=== PATIENT | female | born 1955 | race Caucasian/White ===

== ENCOUNTER 2017-06-09 14:44 | Emergency (ER) | payer OTHER, SELFPAY ==
[2017-06-09 14:45] VITALS: BP 128/94; PULSE 103; RESP 16; TEMP 36.9; O2SAT 95; BMI 32.1
[2017-06-09 14:59] VITALS: O2SAT 98
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
--- NOTE | 2017-06-09 15:12 | NURSING ---
PER PHARMACY LIDOCAINE WITH EPI IS ON BACKORDER, DR GOMEZ MADE AWARE.
[2017-06-09] MEDS: Diphth,Pertuss(Acell),Tet Vac 0.5 ML Vial IM (16:00)
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
--- NOTE | 2017-06-09 16:07 | ED.DEP ---
ED Disposition - Plan for ED Patient: Disposition: Home or Assisted Living Chief Complaint: Head Injury Instructions: ED Head Injury Closed, ED Laceration Scalp Stitch Or Stap Referrals: Raheel Benton MD [Primary Care Provider] - 7 Days for suture removal
[2017-06-09 16:25] VITALS: BP 144/95; RESP 18
== END 2017-06-09 16:25 | disposition home or self-care (01) ==
PROVIDERS: Emergency Provider Emergency Medicine; Family Provider Family Medicine; PCP Family Medicine
DX: S06.9X1A Unspecified intracranial injury with loss of consciousness of 30 minutes or less, initial encounter (principal); S01.01XA Laceration without foreign body of scalp, initial encounter; W20.8XXA Other cause of strike by thrown, projected or falling object, initial encounter; Y93.9 Activity, unspecified; Y92.821 Forest as the place of occurrence of the external cause; Y99.9 Unspecified external cause status; I10 Essential (primary) hypertension; Z86.718 Personal history of other venous thrombosis and embolism; Z79.82 Long term (current) use of aspirin; Z79.899 Other long term (current) drug therapy; Z23 Encounter for immunization
CPT/HCPCS: 12002; 70450; 90471; 90715; 99284

== ENCOUNTER → 2017-08-05 07:05 | Outpatient (CLI) | payer OTHER, SELFPAY ==
[2017-08-05 08:46] LABS: Absolute Lymphocyte Count 1.46 X10^3/ul (0.83-4.51); Absolute Neutrophil Count 2.8 X10^3/uL (2.0-7.7); Basophil# 0.02 X10^3/uL; Basophil% 0.4 % (0-1); Eosinophil# 0.16 X10^3/uL; Eosinophils% 3.3 % (0-5); Hematocrit 38.9 % (37-47); Hemoglobin 13.2 g/dl (12.0-15.0); Lymphocyte # 1.46 X10^3/ul (4.0); Lymphocyte % 30.4 % (19-41); Mean Corp Hgb Conc 33.9 g/gl (32-36); Mean Corpuscular Hgb 30.6 pg (27.0-32.0); Mean Platelet Vol. 10.6 fl (6.2-12.0); Monocyte# 0.41 X10^3/uL; Monocyte% 8.5 % (0-10); Neutrophil # 2.76 X10^3/uL (2.7-7.7); Neutrophil % 57.4 % (47-70); Platelet Count 261 K/mm3 (150-450); RBC Distribution Width CV 12.3 % (11.6-14.6); Red Blood Count 4.32 M/mm3 (4.2-5.4); White Blood Count 4.8 K/mm3 (4.4-11.0)
[2017-08-05 08:47] LABS: POSITIVE COUNT NO; POSITIVE DIFFERENTIAL NO; POSITIVE MORPHOLOGY NO
[2017-08-05 09:07] LABS: Anion Gap 7 (5-15); BUN 20 mg/dL (7-18); BUN/Creat Ratio 28.2 RATIO (10-20); Calcium,Total 9.2 mg/dL (8.5-10.1); Chloride 105 mmol/L (98-107); Creatinine, Serum 0.71 mg/dL (0.55-1.02); EST Glomerular Filtration Rate 88 mL/min (>60); Est Glom Filt Rate - Afr Amer 107 mL/min (>60); Glucose 88 mg/dL (74-106); Magnesium 1.8 mg/dL (1.6-2.6); Sodium Level 142 mmol/L (136-145)
== END ==
PROVIDERS: Family Provider Family Medicine; PCP Family Medicine; Visit Provider Internal Medicine Cardiovascular Disease
DX: I10 Essential (primary) hypertension (principal)
CPT/HCPCS: 36415; 80048; 83735; 85025

== ENCOUNTER → 2017-10-15 12:46 | Outpatient (CLI) | payer OTHER, SELFPAY ==
--- NOTE | 2017-10-15 12:47 | RAD_ITS ---
STUDY: X-RAY - LEFT SHOULDER REASON FOR EXAM: Female, 62 years old. Shoulder pain. TECHNIQUE: 3 view(s) of the shoulder. COMPARISON: None. FINDINGS: There is mild arthrosis of the glenohumeral joint. There is mild arthrosis of the acromioclavicular joint. Normal acromion. Normal humeral head and visualized proximal humerus. The soft tissue structures are unremarkable. Normal visualized pulmonary apex. 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 No acute pathology. Electronically Signed: Bharathi Alcantara MD at 13:28 EDT , Service support ,
== END ==
PROVIDERS: Family Provider Family Medicine; PCP Family Medicine; Visit Provider Orthopaedic Surgery
DX: M25.512 Pain in left shoulder (principal)
CPT/HCPCS: 73030

== ENCOUNTER 2017-10-17 14:53 | Outpatient (RCR) | payer OTHER, SELFPAY ==
--- NOTE | 2017-11-28 12:02 | HP.PTEVAL ---
Patient's Visit Information NIKOS NOVOA is a 62 year old F referred to Physical Therapy by Helen Villaseñor DO with a diagnosis of L shoulder RTC tear vs impingment. Date of Evaluation: 10/17/17 Physical Therapist: Shaun Coy - Visit Plan Frequency: 1-2x /Week Duration: 4 Weeks Plan: Start with AAROM and stability exercises, progressing to strengthening as tolreated. Avoid painful movements. - Subjective Subjective: Pt. is here today for her initial evaluation with diagnosis of L RTC tear vs impingment. Pt. reports having increased pain at rest and with raising her arm over her head. She is able to play [employer] without issues. Pt. reports falling a few months ago, but was unsure if this was the cause of her symptoms. Pt. is able to complete most of her job activities, but is having constant pain. Pt. was seeing chiropractor for her back and neck, but was referred to ortho to check out her arm. Pt. is ahving trouble with sleeping on that side as well. She denies N/T at this point in time. Pt. has not trialed any exercises at this point in time. Pt. is hopeful to reduce symptoms in order to have increased quality of life and get back to all recreational activities without issues. - Pain L shoulder Pain Intensity (Out of 10): 2 Pain Intensity Range: 0, 5 - Objective POSTURE: Pt. has normal posture. Pt. has slgiht FH with slight scapular protraction. Pt. has equal shoulder heights. PALPATION: Pt. has increased tenderness along bicipital groove and anterior subacromial space of L shoulder. No UT pain. NEURO: normal sensation, no impairments noted. ROM: R shoulder- full motion no issues. L shoulder: flexion 160deg increase NW at end range andwith eccentric lowering, abd 145deg incraese NW at end range and with painful arm, ext normal, functional ER C2, fucntional IR L2. MMT: R shoulder 4+/5 throughout; L shoulder- flexion 4/5 increase NW, abd 4/5 increase NW, ER 4/5 increase NW, IR 5/5 NE, ext 5/5 NE. - Special Tests L Shoulder Drop Sign - IS Test: Negative L Shoulder Empty Can - SS: Positive L Shoulder Belly Press - SupScap: Negative L Shoulder Neer - Impingement: Positive L Shoulder Cervantes Rai - Impingement: Positive L Shoulder Biceps Load Test - Labrum: Negative L Shoulder Speeds Test - Labrum/Biceps: Positive - Goals Goal 1:: Pt. to be I with HEP. Goal Time Frame: 4-6 Weeks Goal 2:: Pt. to have full L shoulder ROM without increase in symptoms. Goal Time Frame: 4-6 Weeks Goal 3:: Pt. to have increased L shoulder strength by 1/2 grade of all effected musculature. Goal Time Frame: 4-6 Weeks Goal 4:: Pt. to have no pain with sleeping allwoing for increased quality of life. Goal Time Frame: 4-6 Weeks Goal 5:: Pt. to resume all recreational activities without increase in symptoms. Goal Time Frame: 4-6 Weeks - Rehabilitation Potential Physical Therapy Diagnosis: Pt. has signs and symptoms of L shoulder RTC pathology. It appears that she has a small tear of her RTC, most likely supraspinatus. She does have some slight biceps tendonitis as well. PT. would benefit from PT to maintain/improve ROM and progress strengthening as tolerated. Rehabilitation Potential: Good - Anticipated Interventions Patient/Client Instruction: Educate patient on: Condition, Plan of Care, Risk Factors, Benefits of Fitness Program For the Purpose of:: To improve decision making, To facilitate caregiver knowledge, To improve self management, To prevent re-injury, To improve ability to perform tasks related to life management, To improve tolerance to ADL's Therapeutic Exercise to Include: Strength training, Power training, Postural training, Flexibilty training, Passive ROM, Active ROM, Scapular Strength/Stabilization For the Purpose of:: To decrease pain, To decrease swelling/inflammation, To increase ROM, To improve nutrient delivery to tissue, To increase oxygenation perfusion, To improve health of tissue, To decrease soft tissue restriction, To increase flexibility/ROM IF ES: Yes Ultrasound (thermal/non thermal): Yes For the Purpose of:: To decrease pain, To decrease swelling/inflammation, To increase ROM Thank you for the opportunity to evaluate your patient. For Medicare and Medicare HMO plans, please review the plan of care and approve it. It will need to be FAXED BACK to us at [phone] for Medicare purposes. Please let me know if there are questions or concerns regarding this plan of care. Physician Signature: Date:
--- NOTE | 2018-04-15 17:31 | HP.PT.NRP ---
HP - Discharge Summary (1) - Patient Information NIKOS NOVOA was seen in my office for initial evaluation on 10/17/17. The following Plan of Care was established for this patient: Initial Frequency: 1-2x /Week Initial Duration: 4 Weeks - Anticipated Interventions Patient/Client Instruction: Educate patient on: Condition, Plan of Care, Risk Factors, Benefits of Fitness Program For the Purpose of:: To improve decision making, To facilitate caregiver knowledge, To improve self management, To prevent re-injury, To improve ability to perform tasks related to life management, To improve tolerance to ADL's Therapeutic Exercise to Include: Strength training, Power training, Postural training, Flexibilty training, Passive ROM, Active ROM, Scapular Strength/Stabilization For the Purpose of:: To decrease pain, To decrease swelling/inflammation, To increase ROM, To improve nutrient delivery to tissue, To increase oxygenation perfusion, To improve health of tissue, To decrease soft tissue restriction, To increase flexibility/ROM IF ES: Yes Ultrasound (thermal/non thermal): Yes For the Purpose of:: To decrease pain, To decrease swelling/inflammation, To increase ROM This patient was last seen in our office 10/17/17. Pertinent comments regarding their Physical therapy will appear below: Pt. was seen for her L shoulder pain. Pt. was seen for her initial evaluation, but did not return to further follow up appointments. Pt. was given exercises to work on. Pt. has not been seen in several months and will be DC from PT at this point in time. At this point I will be discontinuing this patient from physical therapy. I would be happy to see this patient again in the future if found appropriate by the physician. Thank you! SAGAR DesouzaT
== END 2017-10-17 19:00 | disposition home or self-care (01) ==
LOC: PT 14:53
PROVIDERS: Family Provider Family Medicine; PCP Family Medicine; Visit Provider Orthopaedic Surgery
DX: M75.102 Unspecified rotator cuff tear or rupture of left shoulder, not specified as traumatic (principal); M75.22 Bicipital tendinitis, left shoulder
CPT/HCPCS: 97162

== ENCOUNTER → 2017-11-01 05:52 | Outpatient (CLI) | payer OTHER, SELFPAY ==
--- NOTE | 2017-11-01 05:54 | MRI_ITS ---
STUDY: MRI LEFT SHOULDER REASON FOR EXAM: Left shoulder pain for 4 months status post injury. TECHNIQUE: Standardized fat and water weighted pulse sequences were obtained in all 3 orthogonal planes. COMPARISON: Radiographs 10/15/2017. FINDINGS: There is a small linear low-grade partial-thickness tear of the articular surface of the distal posterior supraspinatus tendon at the greater tuberosity insertion (T2 coronal image 9). Normal infraspinatus tendon. There is subscapularis tendinosis (proton density axial image 10) without discrete tendon tear. Normal teres minor tendon. Normal supraspinatus muscle. Normal infraspinatus muscle. Normal subscapularis muscle. Normal teres minor muscle. There is a small glenohumeral joint effusion with fluid extending into the bicipital tendon sheath. There is very mild cystic change of the greater tuberosity. Normal biceps labral complex. Normal intracapsular long biceps tendon. Normal labrum. Normal capsulo- ligamentous complex. There is acromioclavicular arthrosis without undersurface osteophytes (T2 sagittal image 10). There is a Type I morphology (flat undersurface), with a neutral orientation. There is subacromial-subdeltoid bursal fluid. Normal visualized coracohumeral and coracoacromial ligaments. Normal deltoid muscle. Normal trapezius muscle. MRI/Upper Ext Joint Only(Routine) IMPRESSION: Small low-grade partial-thickness tear of the supraspinatus tendon. Subscapularis tendinosis. Acromioclavicular arthrosis. Subacromial-subdeltoid bursitis. Small glenohumeral joint effusion. Electronically Signed: Naga Chavez MD at 14:09 EDT Tel , Service support ,
== END ==
PROVIDERS: Family Provider Family Medicine; PCP Family Medicine; Visit Provider Orthopaedic Surgery
DX: M75.102 Unspecified rotator cuff tear or rupture of left shoulder, not specified as traumatic (principal)
CPT/HCPCS: 73221

== ENCOUNTER → 2018-03-13 16:31 | Outpatient (CLI) | payer OTHER, SELFPAY ==
[2018-03-13 15:01] VITALS: BMI 32.1
--- NOTE | 2018-03-13 16:32 | BI_ITS ---
MAMMOGRAPHY - BILATERAL SCREENING REASON FOR EXAM: Female, 62 years old. Routine annual screening examination. PERTINENT HISTORY: Aunt with breast cancer. TECHNIQUE: Digital bilateral breast rocío (3D mammographic acquisition) in the CC and MLO projections. 2-D mediolateral oblique (MLO) and craniocaudad (CC) views of both breasts were obtained. CAD: Full Field Digital Mammography with Computer Added Detection was performed. COMPARISON: Comparison is made with prior study dated September 21, 2016 and February 13, 2017. FINDINGS: Breast Composition: The breasts are almost entirely fatty. There are no dominant masses or suspicious calcifications. The previously seen 5 mm well-defined nodule in the inferior medial portion of the left breast is not seen at this time. No other significant abnormalities are identified. BI/SCREENING MAMM (CAD), BILAT IMPRESSION: Stable bilateral screening mammogram. Yearly follow-up mammogram recommended. (A) ASSESSMENT CATEGORY: BIRADS Category 2: Benign. A letter regarding these results will be sent to the patient by the facility within 30 days. Approximately 10% of breast cancers are not detected by mammography. A normal mammogram should not delay biopsy of a clinically suspicious abnormality. [id number] Electronically Signed: Isaias Munoz MD at 8:41 EST Tel [phone], Service support ,
== END ==
PROVIDERS: Family Provider Family Medicine; PCP Family Medicine; Referring Provider Family Medicine; Visit Provider Family Medicine
DX: Z12.31 Encounter for screening mammogram for malignant neoplasm of breast (principal)
CPT/HCPCS: 77063; 77067

== ENCOUNTER 2018-08-31 11:56 | Observation (INO) | payer OTHER, SELFPAY ==
[2018-07-25 13:05] VITALS: BMI 33.0
[2018-08-31] VITALS (11 sets, daily range): BP systolic 133–204; BP diastolic 73–110; PULSE 68–80; RESP 14–16; TEMP 36.6–37; O2SAT 95–98; BMI 32.1; BMI 32.2
--- NOTE | 2018-08-31 12:11 | EKG12_ITS ---
Test Reason : REPEAT Blood Pressure : / mmHG Vent. Rate : 068 BPM Atrial Rate : 068 BPM P-R Int : 162 ms QRS Dur : 092 ms QT Int : 366 ms P-R-T Axes : 050 006 028 degrees QTc Int : 389 ms Normal sinus rhythm Normal ECG Confirmed by VIVIANE LEIGH MD ([id number]), image editor MARY SOUSA ([id number]) on 09/02/2018 8:04:17 AM Referred By: JASON Confirmed By:VIVIANE LEIGH MD
--- NOTE | 2018-08-31 12:11 | RAD_ITS ---
STUDY: X-RAY CHEST REASON FOR EXAM: Female, 62 years old. Chest pain TECHNIQUE: Frontal view of the chest COMPARISON: None. FINDINGS: The lungs are clear. There are no pleural effusions. There is no pneumothorax. The heart is normal in size. The visualized osseous structures are within normal limits. RAD/Chest 1 View (Portable) IMPRESSION: No acute thoracic pathology. Electronically Signed: Elmer Gutierrez, at 12:43 EDT Tel , Service support ,
--- NOTE | 2018-08-31 12:17 | EKG12_ITS ---
Test Reason : CP Blood Pressure : / mmHG Vent. Rate : 069 BPM Atrial Rate : 069 BPM P-R Int : 162 ms QRS Dur : 090 ms QT Int : 364 ms P-R-T Axes : 040 002 035 degrees QTc Int : 390 ms Normal sinus rhythm Nonspecific ST abnormality Abnormal ECG Confirmed by LU BUSTAMANTE, VIVIANE ([id number]), editor at large MARY SOUSA ([id number]) on 09/02/2018 8:04:37 AM Referred By: JASON Confirmed By:VIVIANE LEIGH MD
[2018-08-31 12:24] LABS: Absolute Lymphocyte Count 1.17 X10^3/ul (0.83-4.51); Absolute Neutrophil Count 2.9 X10^3/uL (2.0-7.7); Basophil# 0.02 X10^3/uL; Basophil% 0.4 % (0-1); Eosinophil# 0.08 X10^3/uL; Eosinophils% 1.7 % (0-5); Hemoglobin 13.2 g/dl (12.0-15.0); Lymphocyte # 1.17 X10^3/ul (4.0); Lymphocyte % 25.5 % (19-41); Mean Corp Hgb Conc 33.8 g/gl (32-36); Mean Corpuscular Hgb 30.1 pg (27.0-32.0); Mean Corpuscular Volume 88.8 fL (81-99); Mean Platelet Vol. 10.3 fl (6.2-12.0); Monocyte# 0.47 X10^3/uL; Monocyte% 10.2 % (0-10); Neutrophil # 2.85 X10^3/uL (2.7-7.7); Neutrophil % 62.2 % (47-70); Platelet Count 233 K/mm3 (150-450); RBC Distribution Width CV 12.6 % (11.6-14.6); RBC Distribution Width SD 40.3 fl (35.1-43.9); Red Blood Count 4.39 M/mm3 (4.2-5.4); White Blood Count 4.6 K/mm3 (4.4-11.0)
[2018-08-31 12:28] LABS: POSITIVE COUNT NO; POSITIVE DIFFERENTIAL NO; POSITIVE MORPHOLOGY NO
[2018-08-31] MEDS: Aspirin 81 MG TAB.CHEW 243 MG PO (12:32)
[2018-08-31] MEDS: 0.9% Normal Saline 1,000 ML 150 ML IV (12:32)
[2018-08-31 12:34] LABS: Anion Gap 9 (5-15); BUN 16 mg/dL (7-18); BUN/Creat Ratio 19.8 RATIO (10-20); Calcium,Total 8.8 mg/dL (8.5-10.1); Chloride 107 mmol/L (98-107); Creatinine, Serum 0.81 mg/dL (0.55-1.02); EST Glomerular Filtration Rate 76 mL/min (>60); Est Glom Filt Rate - Afr Amer 92 mL/min (>60); Estimated Creatinine Clearance 53.64 ml/min; Glucose 109 mg/dL (74-106); Potassium 3.9 mmol/L (3.5-5.1); Sodium Level 143 mmol/L (136-145)
--- NOTE | 2018-08-31 12:44 | ED.VISSUMM ---
- ER Visit Summary Date of Service: 08/31/18 Chief Complaint: Chest pain History of Present Illness: The patient is a 62 F with chest pressure started this morning. She has had pain rating up in the left side of her jaw down her left arm. Today she did feel this is a lightheadedness associated with this as well. She denies shortness of breath. She had intermittent episodes of chest tightness for the last several months. She was seen by cardiology 1 month ago. She has never had a stress test. Physical Examination: Vital signs on arrival include a blood pressure of 204/99, otherwise unremarkable. Patient sitting upright in bed no acute distress. She is anxious. Heart is regular rate and rhythm. Lung sounds are clear. Abdomen is soft and nontender. Lower external examination was no calf tenderness or edema. Test Results: Initial EKG reveals sinus rhythm at [address] depression in V6 only. Repeat EKG is sinus with no ST depression noted to V6. CBC and chemistry studies unremarkable. Troponin is negative. Emergency Department Course and Treatment: Patient taken 1 baby aspirin prior to arrival. She is given 3 additional baby aspirin here. Blood pressure this time is 159/96 with a heart rate of 73. Patient be admitted for further cycling of cardiac enzymes. Treatment Plan: [] Disposition: Admit Impression: Chest pain This note was generated with [employer] dictation software. It may contain incorrect words, spelling, and punctuation that were not noted in review of the chart prior to signing ED Disposition - Plan for ED Patient: Referrals: Raheel Benton MD [Primary Care Provider] -
--- NOTE | 2018-08-31 13:12 | PCM.HP.STD ---
Problem List (1) Atypical chest pain Status: Acute (2) Essential (primary) hypertension Status: Chronic History of Present Illness Date of Admission: 08/31/18 Chief Complaint: Chest discomfort The patient is a 62 year old F past medical history segment for essential hypertension, previous history of central vein thrombosis for which patient has remained on baby aspirin presented with chest discomfort. Per patient he has had intermittent discomfort over the past couple of weeks. 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 On the day of her presentation woke up with chest discomfort which she described as tightness and bandlike radiating to her left arm as well as neck. She subsequently presented to the emergency department as a result. Initial set of cardiac enzymes and EKG came back unremarkable. Decision was made to admit patient for subsequent evaluation in the hospital. Past Medical History Past Medical History (Chronic Problems): Chronic Problems (Last Reviewed 02/10/18 @ 08:31 by Andria Arizmendi) Shortness of breath (Chronic) Scoliosis (Chronic) Syncope and collapse (Chronic) Essential (primary) hypertension (Chronic) Red stool (Chronic) Medical History: Medical History (Last Reviewed 02/10/18 @ 08:31 by Andria Arizmendi) Scoliosis (Chronic) M41.9 Syncope and collapse (Chronic) R55 Essential (primary) hypertension (Chronic) I10 History of hysterectomy Z90.710 Hypokalemia E87.6 Hypomagnesemia E83.42 Allergies amlodipine besylate [From [facility]] Allergy (Severe, Verified 07/25/18 13:10) CAUSED RIGHT LEG TO SWELL CAUSED RIGHT LEG TO SWELL Home Medications: Ambulatory Orders Medication Instructions Recorded Ramipril [Altace] 10 mg PO DAILY 09/14/14 aspirin 81 mg tablet,delayed 81 mg PO QDAY 07/25/17 release diphenhydramine 25 mg tablet 25 mg PO QHS PRN 07/25/17 Surgical History: Surgical History (Last Reviewed 08/31/18 @ 13:26 by Estrada Aguilera MD) Hx of partial thyroidectomy E89.0 Smoking Status: Never smoker - *Family History Maternal Family History: Family History (Last Reviewed 02/10/18 @ 08:31 by Andria Arizmendi) Mother Ventricular tachycardia Paternal Family History: Family History (Last Reviewed 02/10/18 @ 08:31 by Andria Arizmendi) Mother Ventricular tachycardia Review of Systems Constitutional: Denies: Anorexia, Chills, Fever, Night Sweats, Weight Change HEENT: Denies: Head Aches, Sinus Congestion, Sinus Drainage Cardiovascular: Reports: Chest Pain, Light Headedness. Denies: Orthopnea, Palpitations, Paroxysmal Noc. Dyspnea Respiratory: Denies: Cough, Shortness of breath at rest, Shortness of breath upon exertion, Sputum production Gastrointestinal: Denies: Abdominal Pain, Hematemesis, Hematochezia, Nausea, Melena, Vomiting Genitourinary: Denies: Dysuria, Frequency, Hematuria, Urgency Musculoskeletal: Denies: Joint Pain, Joint Tenderness Skin: Denies: Rash Neurological: Denies: Focal weakness, Numbness, Tingling Psychiatric: Denies: Homicidal Ideations, Suicidal Ideations Hematologic/ Lymphatic: Denies: Easy Bruising, Easy Bleeding VTE Information - Inpt Only VTE Present on Admission: No VTE Mechan Device Prophylaxis: None VTE Pharm Prophylaxis ordered?: Yes Objective: GENERAL: cooperative HEENT: Atraumatic; EYES; Anicteric, Normal Conjunctiva NECK; supple, normal thyroid, RESPIRATORY: Diminished to auscultation CARDIOVASCULAR: Regular S1 S2, GI: soft, non-tender, normoactive bowel sounds, : No Renal angle tenderness; EXTREMITIES: No edema, no clubbing, MUSCULOSKELETAL: No Joint Tenderness; NEURO: Awake; no lateralizing signs. SKIN: No Rash PSYCH; Normal affect - Physical Exam Vital Signs Temp Pulse Resp BP Pulse Ox 97.8 F 74 15 161/110 H 98 08/31/18 11:58 08/31/18 12:59 08/31/18 12:59 08/31/18 12:59 08/31/18 12:59 Oxygen Flow Rate (L/min) 2 Oxygen Delivery Method Nasal Cannula Weight: 77.2 kg Body Mass Index (BMI) 32.1 Laboratory Tests Past 24 Hrs 08/31/18 08/31/18 12:05 12:05 WBC 4.6 RBC 4.39 Hgb 13.2 Hct 39.0 MCV 88.8 MCH 30.1 MCHC 33.8 RDW 12.6 RDW Differential 40.3 Plt Count 233 MPV 10.3 Immature Gran % (Auto) 0.000 Neut % (Auto) 62.2 Lymph % (Auto) 25.5 Alexander % (Auto) 10.2 H Eos % (Auto) 1.7 Baso % (Auto) 0.4 Absolute Neuts (auto) 2.9 Absolute Lymphs (auto) 1.17 Total Counted Not Reportable Sodium 143 Potassium 3.9 Chloride 107 Carbon Dioxide 27.0 Anion Gap 9 BUN 16 Creatinine 0.81 Estim Creat Clear Calc 53.64 Est GFR (MDRD) Af Amer 92 Est GFR (MDRD) Non-Af 76 BUN/Creatinine Ratio 19.8 Glucose 109 H Calcium 8.8 Troponin I < 0.015 Assessment/Plan All Active Problems (Last Reviewed 02/10/18 @ 08:31 by Andria Arizmendi) Atypical chest pain (Acute) Segmental and somatic dysfunction of pelvic region (Acute) Segmental and somatic dysfunction of cervical region (Acute) Segmental and somatic dysfunction of thoracic region (Acute) Segmental and somatic dysfunction of lumbar region (Acute) Patient is a 62-year-old lady presented with chest pain 1. Chest pain patient has been placed on a monitored bed with plans to rule out IA with serial cardiac enzymes and EKG. Patient to undergo nuclear stress test in a.m. if IA is ruled out 2. Essential hypertension recently diagnosed. Patient blood pressure on admission not well controlled did continue with her home medication Altace 3. History of central venous thrombosis patient has remained on aspirin 4. Scoliosis: Stable 5. DVT prophylaxis ; Lovenox Code Visit OBSV E&M: [id number] Initial observation care L3
--- NOTE | 2018-08-31 14:14 | EKG12_ITS ---
Test Reason : CP ADMISSION Blood Pressure : / mmHG Vent. Rate : 067 BPM Atrial Rate : 067 BPM P-R Int : 160 ms QRS Dur : 088 ms QT Int : 376 ms P-R-T Axes : 056 036 045 degrees QTc Int : 397 ms Normal sinus rhythm Normal ECG Confirmed by SHARON BUSTAMANTE, MAURICE ([id number]), publishing editor GENNARO LINO ([id number]) on 09/03/2018 12:01:54 PM Referred By: YASMIN Confirmed By:MAURICE HERRERA MD
--- NOTE | 2018-08-31 14:40 | ECHOD_ITS ---
Reason For Study: CHEST PAIN Procedure This was a 2D Doppler, Color Flow transthoracic echocardiogram. Exam performed in department. Left Ventricle Normal LV size. Left ventricular systolic function is normal. The estimated ejection fraction is 63 %. Stage 1 diastolic dysfunction. No regional wall motion abnormalities noted. Right Ventricle Normal RV size. Normal systolic function. Atria Normal left atrium. Normal right atrium. Mitral Valve Normal mitral valve. Tricuspid Valve Normal tricuspid valve. Aortic Valve Normal aortic valve. Trisinus/trileaflet aortic valve. Pulmonic Valve Normal pulmonic valve. Great Vessels Mild to moderately dilated aortic root. The pulmonary artery is normal size. Normal inferior vena cava. Pericardium/Pleural No pericardial effusion. Medication Previously negative bubble study. MMode/2D Measurements & Calculations LVIDd: 4.4 cm IVSd: 0.74 cm Ao root diam: 4.3 cm LVIDs: 3.0 cm LVPWd: 0.83 cm RVDd: 2.7 cm FS: 32.1 % LAV(MOD-bp): 39.8 ml LA A4 area: 13.8 cm2 LA dimension(2D): 2.9 cm LAV(MOD-bp) Indexed: 22.6 ml/m2 LAV(MOD-sp2): 39.0 ml LAV(MOD-sp4): 34.4 ml RA A4 area: 9.6 cm2 Time Measurements MV dec time: 0.20 sec Doppler Measurements & Calculations MV E max rico: 85.5 cm/sec Lat Peak E' Rico: 11.0 cm/sec Med Peak E' Rico: 6.8 cm/sec MV A max rico: 63.8 cm/sec E/E' lat: 7.8 E/E' med: 12.5 MV E/A: 1.3 Ao V2 max: 125.4 cm/sec LV V1 max: 103.1 cm/sec TR max rico: 224.5 cm/sec Ao max P.3 mmHg LV V1 max P.3 mmHg TR max P.2 mmHg Interpretation Summary Normal LV size. Left ventricular systolic function is normal. The estimated ejection fraction is 63 %. Stage 1 diastolic dysfunction. Mild to moderately dilated aortic root. Ordering Physician: Estrada Aguilera Referring Physician: ANGELO NICOLE Performed By: Abida Tapia, OUMOU, RVT
[2018-09-01] VITALS (7 sets, daily range): BP systolic 106–149; BP diastolic 73–80; PULSE 59–66; RESP 14–16; TEMP 36.4–36.7; O2SAT 92–97
--- NOTE | 2018-09-01 04:00 | EKG12_ITS ---
Test Reason : AM EKG Blood Pressure : / mmHG Vent. Rate : 058 BPM Atrial Rate : 058 BPM P-R Int : 164 ms QRS Dur : 092 ms QT Int : 396 ms P-R-T Axes : 052 028 047 degrees QTc Int : 388 ms Sinus bradycardia Otherwise normal ECG Confirmed by SHARON BUSTAMANTE, MAURICE ([id number]), editorial director GENNARO LINO ([id number]) on 09/03/2018 11:52:02 AM Referred By: DR MCNEIL Confirmed By:MAURICE HERRERA MD
[2018-09-01 05:13] LABS: Absolute Lymphocyte Count 1.38 X10^3/ul (0.83-4.51); Absolute Neutrophil Count 2.3 X10^3/uL (2.0-7.7); Basophil# 0.01 X10^3/uL; Basophil% 0.2 % (0-1); Eosinophil# 0.14 X10^3/uL; Eosinophils% 3.3 % (0-5); Hematocrit 37.5 % (37-47); Hemoglobin 12.7 g/dl (12.0-15.0); Lymphocyte # 1.38 X10^3/ul (4.0); Lymphocyte % 32.9 % (19-41); Mean Corp Hgb Conc 33.9 g/gl (32-36); Mean Corpuscular Hgb 29.8 pg (27.0-32.0); Mean Platelet Vol. 10.4 fl (6.2-12.0); Monocyte# 0.42 X10^3/uL; Neutrophil # 2.25 X10^3/uL (2.7-7.7); Neutrophil % 53.6 % (47-70); Platelet Count 218 K/mm3 (150-450); RBC Distribution Width CV 12.3 % (11.6-14.6); RBC Distribution Width SD 38.8 fl (35.1-43.9); Red Blood Count 4.26 M/mm3 (4.2-5.4); White Blood Count 4.2 K/mm3 (4.4-11.0)
[2018-09-01 05:19] LABS: International Normalized Ratio 1.1; Prothrombin Time (Protime)PT. 13.7 SECONDS (11.7-14.9)
[2018-09-01 05:20] LABS: Partial Thromboplast Time 29.6 Seconds (24.1-36.2)
[2018-09-01 05:22] LABS: POSITIVE COUNT NO; POSITIVE DIFFERENTIAL NO; POSITIVE MORPHOLOGY NO
[2018-09-01 05:23] LABS: Anion Gap 9 (5-15); BUN 13 mg/dL (7-18); BUN/Creat Ratio 18.9 RATIO (10-20); Calcium,Total 8.4 mg/dL (8.5-10.1); Chloride 108 mmol/L (98-107); Cholesterol 123 mg/dL (200); Creatinine, Serum 0.69 mg/dL (0.55-1.02); EST Glomerular Filtration Rate 92 mL/min (>60); Est Glom Filt Rate - Afr Amer 111 mL/min (>60); Estimated Creatinine Clearance 62.97 ml/min; Glucose 111 mg/dL (74-106); High Density Lipoprotein 47 mg/dL; Potassium 3.5 mmol/L (3.5-5.1); Sodium Level 143 mmol/L (136-145); Triglycerides 55 mg/dL; Very Low Density Lipoprotein 11 mg/dL (5-40)
[2018-09-01] MEDS: Aspirin E.C. 81 MG Tablet PO (05:35)
[2018-09-01] MEDS: Ramipril 10 MG Capsule PO (05:35)
--- NOTE | 2018-09-01 09:37 | STRESSREP ---
Stress Test Report Exercise myocardial perfusion stress test. 62-year-old lady with a history of chest tightness. Stress protocol: Resting EKG demonstrates normal sinus rhythm with a rate of 64 bpm normal intervals are noted resting blood pressures 146/94 mmHg. The patient exercised according to regular Brandon protocol for total duration of 9 minutes completing stage III of the Brandon protocol the maximum heart rate attained was 148 bpm which was 94% of maximum predicted heart rate the maximum workload was 10.1 metabolic equivalents. The resting blood pressures 146/94 with a peak blood pressure of 212/110. At rest there were no ST or T wave changes noted suggest ischemia peak exercise upsloping ST changes were noted with no meet the criteria for ischemia. Patient complained of a neck tightness during the exertion. Myocardial perfusion protocol. 11.3 mCi of technetium 99m sestamibi was injected at rest. The patient exercised for total duration of 9 minutes attaining 10.1 METS. At peak exercise 33.8 mCi of technetium 99m sestamibi was injected stress images were obtained stress and rest images were reconstructed in comparing the short axis vertical and horizontal long axis. Gated images were also obtained. Perfusion SPECT analysis: Review of the stress images demonstrate mildly reduced perfusion in the distal anterior wall with minimal improvement on the resting images. Mild amount of ischemia cannot be completely excluded. Gated SPECT analysis: The gated ejection fraction is noted to be 76%. Conclusion: Exercise myocardial perfusion stress test with suggestive but not diagnostic ischemia noted in the anterior wall. Throat discomfort suggestive of angina. Hypertensive response to exercise. Preserved ejection fraction.
[2018-09-01] MEDS: ALPRAZolam 0.5 MG Tablet PO (09:59)
--- NOTE | 2018-09-01 09:59 | CASEMGMT ---
According to [employer] website, the following are in-network tertiary facilities: [facility], [facility], [facility], [facility], [facility], [facility], [facility], [facility], [facility], and . Ramon CARUSO CM
--- NOTE | 2018-09-01 11:11 | PCM.CONS.C ---
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 Per patient he has had intermittent discomfort over the past couple of weeks. 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 On the day of her presentation woke up with chest discomfort which she described as tightness and bandlike radiating to her left arm as well as neck. She subsequently presented to the emergency department as a result. Initial set of cardiac enzymes and EKG came back unremarkable. Decision was made to admit patient for subsequent evaluation in the hospital. She underwent a stress test this morning and developed throat tightness during the stress test and it was decided for cardiology to see her for further evaluation and management. Past Medical History Allergies/Adverse Reactions: Allergies amlodipine besylate [From [employer]] Allergy (Severe, Verified 07/25/18 13:10) CAUSED RIGHT LEG TO SWELL CAUSED RIGHT LEG TO SWELL Home Medications: Ambulatory Orders Medication Instructions Recorded Ramipril [Altace] 10 mg PO DAILY 09/14/14 aspirin 81 mg tablet,delayed 81 mg PO QDAY 07/25/17 release Past Medical History (Chronic Problems): Chronic Problems (Last Reviewed 02/10/18 @ 08:31 by Andria Arizmendi) Shortness of breath (Chronic) Scoliosis (Chronic) Syncope and collapse (Chronic) Essential (primary) hypertension (Chronic) Red stool (Chronic) - *Family History Maternal Family History: Family History (Last Reviewed 02/10/18 @ 08:31 by Andria Arizmendi) Mother Ventricular tachycardia Paternal Family History: Family History (Last Reviewed 02/10/18 @ 08:31 by Andria Arizmendi) Mother Ventricular tachycardia Smoking Status: Never smoker Tobacco Use: Non-smoker Alcohol: None Drugs: None Review of Systems - Review of Systems General: Denies: Fever, Night Sweats, Fatigue HEENT: Denies: Vision Change Cardiovascular: Reports: Chest Discomfort, Chest Discomfort with Exertion, Chest Pressure. Denies: Shortness of Breath, Orthopnea, PND, Peripheral Edema, Palpitations, Lightheadedness, Dizziness, Near Syncope, Syncope Respiratory: Denies: Cough, Sputum Production, Hemoptysis Gastrointestinal: Denies: Hematemesis, Hematochezia, Melena Genitourinary: Denies: Dysuria, Hematuria Muscoloskeletal: Denies: Myalgias Skin: Denies: Rash Neurological: Denies: Dizziness Psychiatric: Denies: Anxiety Endocrine: Denies: Heat Intolerance Hematologic/ Lymphatic: Denies: Anemia Subjectve: Pleasant lady in no apparent distress Objective: Vital Signs Temp Pulse Resp BP Pulse Ox 97.6 F L 64 14 149/80 H 96 09/01/18 05:15 09/01/18 09:26 09/01/18 05:15 09/01/18 05:15 09/01/18 05:15 Oxygen Flow Rate (L/min) 2 Oxygen Delivery Method Room Air Weight: 170 lb 3.15 oz Body Mass Index (BMI) 32.1 Intake and Output for Last 24 Hours 08/30/18 08/31/18 09/01/18 23:59 23:59 23:59 Intake Total 467 / 467 240 / 240 Balance 467 / 467 240 / 240 General: Awake, Alert, Oriented x 3 HEENT: PERRL, EOMI, Sclera Non Icteric Neck: Supple, Good ROM, No Lymph Node Enlargement Lungs: Clear to auscultation Cardiovascular: Regular Rhythm, Normal S1, Normal S2, No Murmurs, No Rubs, No Gallops Vascular: No Carotid Bruits, Normal Femoral Pulses, Normal Radial Pulses, Normal Dorsalis Pedal Pulse, Normal Posterior Tibial Pulses Abdomen: Bowel Sounds Present, Soft, Non Tender, No HSM, No Organomegaly Extremities: No Cyanosis, No Clubbing, No edema Musculoskeletal: No Erythema Skin: No Rashes Lymphatic: No Lymph Node Enlargement Neurological: No Focal Motor or Sensory Deficit Psych/Mental Status: Appropriate 08/31/18 12:05: WBC 4.6, RBC 4.39, Hgb 13.2, Hct 39.0, MCV 88.8, MCH 30.1, MCHC 33.8, RDW 12.6, RDW Differential 40.3, Plt Count 233, MPV 10.3, Immature Gran % (Auto) 0.000, Neut % (Auto) 62.2, Lymph % (Auto) 25.5, Clay % (Auto) 10.2 H, Eos % (Auto) 1.7, Baso % (Auto) 0.4, Absolute Neuts (auto) 2.9, Total Counted Not Reportable 08/31/18 12:05: Sodium 143, Potassium 3.9, Chloride 107, Carbon Dioxide 27.0, Anion Gap 9, BUN 16, Creatinine 0.81, Est GFR (MDRD) Af Amer 92, Est GFR (MDRD) Non-Af 76, BUN/Creatinine Ratio 19.8, Glucose 109 H, Calcium 8.8, Troponin I < 0.015 08/31/18 15:35: Troponin I < 0.015 08/31/18 18:05: Troponin I < 0.015 09/01/18 04:50: Sodium 143, Potassium 3.5, Chloride 108 H, Carbon Dioxide 26.0, Anion Gap 9, BUN 13, Creatinine 0.69, Est GFR (MDRD) Af Amer 111, Est GFR (MDRD) Non-Af 92, BUN/Creatinine Ratio 18.9, Glucose 111 H, Calcium 8.4 L, Magnesium 2.0, Triglycerides 55, Cholesterol 123, LDL Cholesterol 65, VLDL Cholesterol 11, HDL Cholesterol 47 09/01/18 04:50: WBC 4.2 L, RBC 4.26, Hgb 12.7, Hct 37.5, MCV 88.0, MCH 29.8, MCHC 33.9, RDW 12.3, RDW Differential 38.8, Plt Count 218, MPV 10.4, Immature Gran % (Auto) 0.000, Neut % (Auto) 53.6, Lymph % (Auto) 32.9, Clay % (Auto) 10.0, Eos % (Auto) 3.3, Baso % (Auto) 0.2, Absolute Neuts (auto) 2.3, Total Counted Not Reportable 09/01/18 04:50: PT 13.7, INR 1.1, APTT 29.6 Rhythm: EKG: Normal sinus rhythm with no acute changes ECHO: Normal ejection fraction of 65% with mild to moderately dilated aortic root Stress Test: Mildly abnormal stress test with symptomatology and possible mild anterolateral ischemia Assessment/Plan 1. Chest pain Patient presents with chest pain which was somewhat atypical and cardiac enzymes were abnormal underwent stress testing. The stress testing reproduce some of her symptomatology. Based on the above it was felt that she should undergo a cardiac catheterization. The risk benefits and alternatives have been explained to her she understands and agrees to proceed. Addendum: Cardiac catheterization performed today demonstrated essentially normal coronary arteries. Left ventricular ejection fraction was noted to be normal And there was a mildly dilated aortic root. Plan: Aggressive medical therapy. Risk factor modification Discontinue recent diet drink.
--- NOTE | 2018-09-01 11:15 | CON.PCM_ITS ---
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 Per patient he has had intermittent discomfort over the past couple of weeks. 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 On the day of her presentation woke up with chest discomfort which she described as tightness and bandlike radiating to her left arm as well as neck. She subsequently presented to the emergency department as a result. Initial set of cardiac enzymes and EKG came back unremarkable. Decision was made to admit patient for subsequent evaluation in the hospital. She underwent a stress test this morning and developed throat tightness during the stress test and it was decided for cardiology to see her for further evaluation and manage ment. Past Medical History Allergies/Adverse Reactions: Allergies amlodipine besylate [From [employer]] Allergy (Severe, Verified 07/25/18 13:10) CAUSED RIGHT LEG TO SWELL CAUSED RIGHT LEG TO SWELL Home Medications: Ambulatory Orders Medication Instructions Recorded Ramipril [Altace] 10 mg PO DAILY 09/14/14 aspirin 81 mg tablet,delayed 81 mg PO QDAY 07/25/17 release Past Medical History (Chronic Problems): Chronic Problems (Last Reviewed 02/10/18 @ 08:31 by Andria Arizmendi) Shortness of breath (Chronic) Scoliosis (Chronic) Syncope and collapse (Chronic) Essential (primary) hypertension (Chronic) Red stool (Chronic) - *Family History Maternal Family History: Family History (Last Reviewed 02/10/18 @ 08:31 by Andria Arizmendi) Mother Ventricular tachycardia Paternal Family History: Family History (Last Reviewed 02/10/18 @ 08:31 by Andria Arizmendi) Mother Ventricular tachycardia Smoking Status: Never smoker Tobacco Use: Non-smoker Alcohol: None Drugs: None Review of Systems - Review of Systems General: Denies: Fever, Night Sweats, Fatigue HEENT: Denies: Vision Change Cardiovascular: Reports: Chest Discomfort, Chest Discomfort with Exertion, Chest Pressure. Denies: Shortness of Breath, Orthopnea, PND, Peripheral Edema, Palpitations, Lightheadedness, Dizziness, Near Syncope, Syncope Respiratory: Denies: Cough, Sputum Production, Hemoptysis Gastrointestinal: Denies: Hematemesis, Hematochezia, Melena Genitourinary: Denies: Dysuria, Hematuria Muscoloskeletal: Denies: Myalgias Skin: Denies: Rash Neurological: Denies: Dizziness Psychiatric: Denies: Anxiety Endocrine: Denies: Heat Intolerance Hematologic/ Lymphatic: Denies: Anemia Subjectve: Pleasant lady in no apparent distress Objective: Vital Signs Temp Pulse Resp BP Pulse Ox 97.6 F L 64 14 149/80 H 96 09/01/18 05:15 09/01/18 09:26 09/01/18 05:15 09/01/18 05:15 09/01/18 05:15 Oxygen Flow Rate (L/min) 2 Oxygen Delivery Method Room Air Weight: 170 lb 3.15 oz Body Mass Index (BMI) 32.1 Intake and Output for Last 24 Hours 08/30/18 08/31/18 09/01/18 23:59 23:59 23:59 Intake Total 467 / 467 240 / 240 Balance 467 / 467 240 / 240 General: Awake, Alert, Oriented x 3 HEENT: PERRL, EOMI, Sclera Non Icteric Neck: Supple, Good ROM, No Lymph Node Enlargement Lungs: Clear to auscultation Cardiovascular: Regular Rhythm, Normal S1, Normal S2, No Murmurs, No Rubs, No Gallops Vascular: No Carotid Bruits, Normal Femoral Pulses, Normal Radial Pulses, Normal Dorsalis Pedal Pulse, Normal Posterior Tibial Pulses Abdomen: Bowel Sounds Present, Soft, Non Tender, No HSM, No Organomegaly Extremities: No Cyanosis, No Clubbing, No edema Musculoskeletal: No Erythema Skin: No Rashes Lymphatic: No Lymph Node Enlargement Neurological: No Focal Motor or Sensory Deficit Psych/Mental Status: Appropriate 08/31/18 12:05: WBC 4.6, RBC 4.39, Hgb 13.2, Hct 39.0, MCV 88.8, MCH 30.1, MCHC 33.8, RDW 12.6, RDW Differential 40.3, Plt Count 233, MPV 10.3, Immature Gran % (Auto) 0.000, Neut % (Auto) 62.2, Lymph % (Auto) 25.5, Morgan % (Auto) 10.2 H, Eos % (Auto) 1.7, Baso % (Auto) 0.4, Absolute Neuts (auto) 2.9, Total Counted Not Reportable 08/31/18 12:05: Sodium 143, Potassium 3.9, Chloride 107, Carbon Dioxide 27.0, Anion Gap 9, BUN 16, Creatinine 0.81, Est GFR (MDRD) Af Amer 92, Est GFR (MDRD) Non-Af 76, BUN/Creatinine Ratio 19.8, Glucose 109 H, Calcium 8.8, Troponin I < 0.015 08/31/18 15:35: Troponin I < 0.015 08/31/18 18:05: Troponin I < 0.015 09/01/18 04:50: Sodium 143, Potassium 3.5, Chloride 108 H, Carbon Dioxide 26.0, Anion Gap 9, BUN 13, Creatinine 0.69, Est GFR (MDRD) Af Amer 111, Est GFR (MDRD) Non-Af 92, BUN/Creatinine Ratio 18.9, Glucose 111 H, Calcium 8.4 L, Magnesium 2.0, Triglycerides 55, Cholesterol 123, LDL Cholesterol 65, VLDL Cholesterol 11, HDL Cholesterol 47 09/01/18 04:50: WBC 4.2 L, RBC 4.26, Hgb 12.7, Hct 37.5, MCV 88.0, MCH 29.8, MCHC 33.9, RDW 12.3, RDW Differential 38.8, Plt Count 218, MPV 10.4, Immature Gran % (Auto) 0.000, Neut % (Auto) 53.6, Lymph % (Auto) 32.9, Morgan % (Auto) 10.0, Eos % (Auto) 3.3, Baso % (Auto) 0.2, Absolute Neuts (auto) 2.3, Total Counted Not Reportable 09/01/18 04:50: PT 13.7, INR 1.1, APTT 29.6 Rhythm: EKG: Normal sinus rhythm with no acute changes ECHO: Normal ejection fraction of 65% with mild to moderately dilated aortic root Stress Test: Mildly abnormal stress test with symptomatology and possible mild anterolateral ischemia Assessment/Plan 1. Chest pain * Patient presents with chest pain which was somewhat atypical and cardiac enzymes were abnormal underwent stress testing. The stress testing reproduce some of her symptomatology. Based on the above it was felt that she should undergo a cardiac catheterization. The risk benefits and alternatives have been explained to her she understands and agrees to proceed. * Addendum: Cardiac catheterization performed today demonstrated essentially normal coronary arteries. Left ventricular ejection fraction was noted to be normal And there was a mildly dilated aortic root. Plan: Aggressive medical therapy. Risk factor modification Discontinue recent diet drink.
--- NOTE | 2018-09-01 11:20 | DCINST_ITS ---
You will use the following diet at home:: Cardiac Your food should be the consistency of: Regular Discharge Activity: Return to Normal Activity Weight Bearing Status: Full weight bearing Call your doctor if you observe: Fever of 101 or Higher, Shortness of breath, Dizziness, Fainting spells, Chest pain, Increased palpitations (irregular heartbeat), Uncontrolled pain Allergies/Adverse Reactions: Allergies amlodipine besylate [From [facility]] Allergy (Severe, Verified 07/25/18 13:10) CAUSED RIGHT LEG TO SWELL CAUSED RIGHT LEG TO SWELL Medications to take at Discharge Ramipril [Altace] 10 mg PO DAILY 09/14/14 aspirin 81 mg tablet,delayed release 81 mg PO QDAY 07/25/17 Primary Care Physician: Raheel Benton MD [Primary Care Provider] - Please follow up with your Primary Care Physician in: 2 weeks. Test Results: Test results from this visit will be discussed in further detail at your follow- up appointment, if applicable.
--- NOTE | 2018-09-01 11:24 | CL.D_ITS ---
Patient Name: NIKOS NOVOA Study Date: 09/01/2018 Performing: Dangelo Norwood MD Ht: 61 inches 155 cm : 1955 Wt: 170 lbs 77 kg Age: 62 Gender: female BSA: 1.76 PROCEDURE(S) PERFORMED [id number]/LV CLINICAL PROFILE AND INDICATIONS Indications: Suspected CAD Heart Failure: None Stress/Imaging Date: 09/01/2018Stress Test with SPECT MPI: Indeterminant CAD Presentations: Symptom unlikely to be ischemic. CONCLUSIONS Normal coronary arteries Normal LV size, wall motion,and systolic function Aortic Root dilated RECOMMENDATIONS Medical therapy DESCRIPTION OF PROCEDURE The patient arrived to the procedure lab. The risks and benefits of the procedure as well as a full d escription of our services here and current unavailability of surgical backup were fully explained to the patient and/or their significant other prior to the catheterization. The Timeout was completed, verifying the correct patient and procedure. The patient's procedural site was prepped and draped in the usual fashion. Local anesthetic was given subcutaneously to right radial region with Lidocaine 2% . Using a modified Seldinger technique, arterial access was obtained via the right radial artery, a 6 Fr sheath was inserted. Right Coronary Artery selective angiography was then performed in multiple v iews using a 5 Fr. 4.0 [place] catheter. Left Coronary Artery selective angiography was performed in mu ltiple views using a 5 Fr. 4.0 [place] catheter. Left Ventriculography was performed in HENNING projection using a 5 Fr. Pigtail catheter. LV to AO pullback pressures were then recorded.The arterial sheath was pulled and a TR Band was applied for hemostasis w/ 12ml air CORONARY ANGIOGRAPHY DOMINANCE: Right Dominant LEFT HEART ASSESSMENT Left Ventricular Ejection Fraction: by LV Gram 60 % Normal Left Ventricular systolic function Normal Left Ventricular systolic function LEFT MAIN: Angiographically normal LEFT ANTERIOR DESCENDING ARTERY: Angiographically normal CIRCUMFLEX ARTERY: Angiographically normal RIGHT CORONARY ARTERY: Angiographically normal AORTIC ROOT: Dilated COMPLICATIONS No Complications PROCEDURE MEDICATIONS Versed 1 mg IV Fentanyl 50 mcg IV Oxygen: 2 L/min via nasal cannula Heparin diluted in 23cc Heparinized saline. Patient given 10cc IA of this solution. 09/01/2018 10:54: 36 Verapamil 2.5mg, Ntg 100mcgs, 2000 units of Heparin diluted in 23cc Heparinized saline. Patient give n 10cc IA of this solution. 09/01/2018 10:54:36 IV Bolus: .9 NaCl 100 ml total 09/01/2018 10:56:12 SUMMARY OF HEMODYNAMIC DATA Time AIR REST ECG 10:43:22 AO 95/68 (80) SA 10:55:53 LV 93/0, 6 11:00:56 LV 88/0, 4 11:01:03 LV 95/-6, 4 11:01:57 LVp 96/-5, 4 11:02:06 AOp 96/58 (74) 11:02:11 Signed By Dangelo Norwood MD On 09/01/2018 11:23:56 Dangelo Norwood MD
--- NOTE | 2018-09-01 12:52 | DS.PCM_ITS ---
Discharge Date and Diagnosis Date of Admission: 08/31/18 Date of Discharge: 09/01/18 - Primary Discharge Diagnosis Chest pain, ACS ruled out, stress test that was suggestive but not diagnostic for anterior wall ischemia, cardiac catheterization was unremarkable. - Secondary Discharge Diagnosis Chronic Problems (Last Reviewed 02/10/18 @ 08:31 by Andria Arizmendi) Shortness of breath (Chronic) Scoliosis (Chronic) Syncope and collapse (Chronic) Essential (primary) hypertension (Chronic) Red stool (Chronic) Hospital Course and Treatment Imaging Results: 09/01/18 05:55 Nuclear Stress Test - Treadmil [NM] AM (NON MEDS) Clinical Impression(s) from Imaging Studies Chest X-Ray 08/31/18 12:11 IMPRESSION: No acute thoracic pathology. Electronically Signed: Elmer Gutierrez, at 12:43 EDT Tel , Service support , Dr. Norwood, cardiology. Operations: None Procedures: Cardiac catheterization, EKG, Stress test Summary of Care Provided: Patient seen and examined on the day of discharge and appeared to be stable to be discharged home. She denies any more chest pain or shortness of breath. Her EKG was unremarkable. Troponin was negative x3. Her vital signs were stable. The patient is a 62 year old F admitted for chest pain for evaluation. Her risk factors with her age and history of hypertension. An EKG revealed normal sinus rhythm without evidence of acute ischemic changes. Troponin was negative x3. Chest x-ray showed no acute findings. She underwent nuclear stress test that was suggestive but nondiagnostic for anterior wall ischemia and patient developed throat discomfort during the stress test which is suggestive of angina. Cardiology consulted and patient underwent cardiac catheterization that revealed angiographically normal left main coronary artery, angiographically normal LAD and left circumflex, angiographically normal RCA, dilated aortic root. There was no evidence of coronary atherosclerosis. ACS ruled out. Her routine blood work was unremarkable. Lipid profile revealed total cholesterol of 123, LDL of 65 and HDL of 47. Patient discharged home in a stable medical condition, continued on aspirin and Altace, recommended follow-up with PCP in 2 weeks. - Physical Exam General: Alert, Oriented x3, Cooperative, No apparent distress HEENT: Atraumatic, PERRLA, EOMI, Normocephalic Oral: Moist Mucosa, No Gingival or Mucosal Lesions/ Ulcerations Neck: Supple, No JVD, Negative Carotid Bruits, Trachea Midline, Thyroid Normal Size and Texture Lungs: Clear to auscultation, Normal air movement, No rhonchi, No wheeze, No rales Cardiovascular: Regular rate, Regular Rhythm, Normal S1, Normal S2, No murmurs Abdomen: Bowel Sounds Present, Soft, Non Tender, Non-Distended, No Hepato- splenomegaly Extremities: No clubbing, No cyanosis, No edema Skin: No rashes, No breakdown Lymphatic: No Cervical, Supraclavicular, or Inguinal Adenopathy Neurological: Cranial nerves II-XII grossly intact, Motor Exam 5/5 strength throughout Psych/Mental Status: Normal Affect, Appropriate Vital Signs Temp Pulse Resp BP Pulse Ox 98.0 F 61 16 110/76 95 09/01/18 12:00 09/01/18 12:00 09/01/18 12:00 09/01/18 12:00 09/01/18 12:00 Oxygen Flow Rate (L/min) 2 Oxygen Delivery Method Room Air Weight: 170 lb 3.15 oz Body Mass Index (BMI) 32.1 Intake and Output for Last 24 Hours 08/30/18 08/31/18 09/01/18 23:59 23:59 23:59 Intake Total 467 / 467 680 / 680 Balance 467 / 467 680 / 680 Laboratory Tests Past 24 Hrs 08/31/18 08/31/18 09/01/18 15:35 18:05 04:50 WBC RBC Hgb Hct MCV MCH MCHC RDW RDW Differential Plt Count MPV Immature Gran % (Auto) Neut % (Auto) Lymph % (Auto) [place] % (Auto) Eos % (Auto) Baso % (Auto) Absolute Neuts (auto) Absolute Lymphs (auto) Total Counted PT INR APTT Sodium 143 Potassium 3.5 Chloride 108 H Carbon Dioxide 26.0 Anion Gap 9 BUN 13 Creatinine 0.69 Estim Creat Clear Calc 62.97 Est GFR (MDRD) Af Amer 111 Est GFR (MDRD) Non-Af 92 BUN/Creatinine Ratio 18.9 Glucose 111 H Calcium 8.4 L Magnesium 2.0 Troponin I < 0.015 < 0.015 Triglycerides 55 Cholesterol 123 LDL Cholesterol 65 VLDL Cholesterol 11 HDL Cholesterol 47 09/01/18 09/01/18 04:50 04:50 WBC 4.2 L RBC 4.26 Hgb 12.7 Hct 37.5 MCV 88.0 MCH 29.8 MCHC 33.9 RDW 12.3 RDW Differential 38.8 Plt Count 218 MPV 10.4 Immature Gran % (Auto) 0.000 Neut % (Auto) 53.6 Lymph % (Auto) 32.9 [place] % (Auto) 10.0 Eos % (Auto) 3.3 Baso % (Auto) 0.2 Absolute Neuts (auto) 2.3 Absolute Lymphs (auto) 1.38 Total Counted Not Reportable PT 13.7 INR 1.1 APTT 29.6 Sodium Potassium Chloride Carbon Dioxide Anion Gap BUN Creatinine Estim Creat Clear Calc Est GFR (MDRD) Af Amer Est GFR (MDRD) Non-Af BUN/Creatinine Ratio Glucose Calcium Magnesium Troponin I Triglycerides Cholesterol LDL Cholesterol VLDL Cholesterol HDL Cholesterol Discharge Activity: Return to Normal Activity Weight Bearing Status: Full weight bearing Call your doctor if you observe: Fever of 101 or Higher, Shortness of breath, Dizziness, Fainting spells, Chest pain, Increased palpitations (irregular heartbeat), Uncontrolled pain Home Medications: Medications to take at Discharge Ramipril [Altace] 10 mg PO DAILY 09/14/14 aspirin 81 mg tablet,delayed release 81 mg PO QDAY 07/25/17 Primary Care Physician: Raheel Benton MD [Primary Care Provider] - Please follow up with your Primary Care Physician in: 2 weeks. Disposition: Home Minutes spent on discharge:: 25 Patient Condition:: Stable Medical Necessity - Tobacco Use Smoking Status: Never smoker Tobacco Use: Non-smoker Meaningful Use Info Meaningful Use Diagnoses (Choose all that apply): None applicable Code Visit OBSV E&M: 05343 Observation care discharge
== END 2018-09-01 11:16 | disposition home or self-care (01) ==
LOC: ED 12:41 → PCU 13:15
PROVIDERS: Admitting Provider Internal Medicine; Emergency Provider Emergency Medicine; Family Provider Family Medicine; PCP Family Medicine; Visit Provider Hospitalist
DX: R07.89 Other chest pain (principal); R42 Dizziness and giddiness; I10 Essential (primary) hypertension; Z79.82 Long term (current) use of aspirin; Z79.899 Other long term (current) drug therapy; M41.9 Scoliosis, unspecified; R94.39 Abnormal result of other cardiovascular function study; Z86.718 Personal history of other venous thrombosis and embolism; R94.31 Abnormal electrocardiogram [ECG] [EKG]
CPT/HCPCS: 36415; 71045; 78452; 80048; 80061; 83735; 84484; 85025; 85610; 85730; 93005; 93017; 93306; 93458; 96360; 96361; 99152; 99218; 99285; A9500; J7030; Q9967; A4216; C1769; C1894; G0378

== ENCOUNTER 2019-12-09 11:09 | Outpatient (RCR) | payer MEDICARE, BC, SELFPAY ==
[2019-07-30 10:10] VITALS: BMI 32.1
== END 2019-12-09 12:00 | disposition home or self-care (01) ==
LOC: EMPH 11:09
PROVIDERS: PCP Family Medicine; Visit Provider Family Medicine Geriatric Medicine
DX: Z11.59 Encounter for screening for other viral diseases (principal)
CPT/HCPCS: 87635; U0003

== ENCOUNTER → 2019-12-18 10:14 | Outpatient (CLI) | payer MEDICARE, BC, SELFPAY ==
[2019-07-30 10:10] VITALS: BMI 32.1
[2019-12-18 12:15] LABS: Absolute Neutrophil Count 2.8 X10^3/uL (2.0-7.7); Basophil# 0.04 X10^3/uL; Basophil% 0.9 % (0-1); Eosinophil# 0.09 X10^3/uL; Eosinophils% 1.9 % (0-5); Hematocrit 43.5 % (37-47); Hemoglobin 14.1 g/dL (12.0-15.0); Lymphocyte % 27.7 % (19-41); Mean Corp Hgb Conc 32.4 g/dL (32-36); Mean Corpuscular Hgb 29.7 pg (27.0-32.0); Mean Corpuscular Volume 91.6 fL (81-99); Mean Platelet Vol. 10.6 fl (6.2-12.0); Monocyte# 0.43 X10^3/uL; Monocyte% 9.1 % (0-10); NRBC Flagged by Analyzer 0 % (0-5); Neutrophil # 2.83 X10^3/uL (2.7-7.7); Neutrophil % 60.2 % (47-70); Platelet Count 299 K/mm3 (150-450); Red Blood Count 4.75 M/mm3 (4.2-5.4); White Blood Count 4.7 K/mm3 (4.4-11.0)
[2019-12-18 12:37] LABS: Vitamin D,25 Hydroxy 37.6 ng/mL
[2019-12-18 12:56] LABS: ALB/GLOB Ratio 1.1 RATIO (0.9-2.4); AST(SGOT) 19 U/L (15-37); Alanine Aminotransfer ALT/SGPT 26 U/L (13-56); Albumin, Serum 4.1 g/dL (3.2-5.0); Alkaline Phosphatase 105 U/L (45-117); Anion Gap 5 (5-15); BUN 14 mg/dL (7-18); BUN/Creat Ratio 19.6 RATIO (10-20); Calcium,Total 9.4 mg/dL (8.5-10.1); Chloride 102 mmol/L (98-107); Cholesterol 171 mg/dL (200); Creatinine, Serum 0.71 mg/dL (0.55-1.02); EST Glomerular Filtration Rate 87 mL/min (>60); Est Glom Filt Rate - Afr Amer 106 mL/min (>60); Globulin 3.8 g/dL (2.2-4.2); Glucose 98 mg/dL (74-106); High Density Lipoprotein 55 mg/dL; Protein, Total 7.9 g/dL (6.4-8.2); Sodium Level 136 mmol/L (136-145); Thyroid Stim Hormone (TSH) 1.45 uIU/mL (0.358-3.74); Triglycerides 55 mg/dL; Very Low Density Lipoprotein 11 mg/dL (5-40)
== END ==
PROVIDERS: PCP Family Medicine; Referring Provider Family Medicine; Visit Provider Family Medicine
DX: I10 Essential (primary) hypertension (principal); M85.80 Other specified disorders of bone density and structure, unspecified site
CPT/HCPCS: 36415; 80053; 80061; 82306; 84443; 85025

== ENCOUNTER 2020-01-18 09:32 | Outpatient (RCR) | payer MEDICARE, SELFPAY ==
[2019-07-30 10:10] VITALS: BMI 32.1
== END 2020-01-23 23:59 ==
LOC: EMPH 09:32
PROVIDERS: PCP Family Medicine; Visit Provider Family Medicine Geriatric Medicine
DX: Z03.818 Encounter for observation for suspected exposure to other biological agents ruled out (principal)
CPT/HCPCS: 87426

== ENCOUNTER → 2020-01-19 13:25 | Outpatient (CLI) | payer MEDICARE, BC, SELFPAY ==
[2019-07-30 10:10] VITALS: BMI 32.1
--- NOTE | 2020-01-19 13:29 | BI_ITS ---
MAMMOGRAPHY - BILATERAL SCREENING REASON FOR EXAM: Female, 64 years old. Routine annual screening examination. PERTINENT HISTORY: Aunt with breast cancer. TECHNIQUE: Digital bilateral breast sg (3D mammographic acquisition) in the CC and MLO projections. 2-D mediolateral oblique (MLO) and craniocaudad (CC) views of both breasts were obtained. CAD: Full Field Digital Mammography with Computer Added Detection was performed. COMPARISON: Comparison is made with prior study dated 03/13/2018 and 02/13/2017. FINDINGS: Breast Composition: The breasts are almost entirely fatty. There are no dominant masses or suspicious calcifications. No other significant abnormalities are identified. There has been no significant change since the prior study. BI/SCREEN MAMM (CAD) W/SG BILAT IMPRESSION: Stable bilateral screening mammogram. Yearly follow-up mammogram recommended. (A) ASSESSMENT CATEGORY: BIRADS Category 1: Negative. A letter regarding these results will be sent to the patient by the facility within 30 days. Approximately 10% of breast cancers are not detected by mammography. A normal mammogram should not delay biopsy of a clinically suspicious abnormality. [id number] Electronically Signed: Isaias Munoz, at 14:37 EDT , Service support ,
--- NOTE | 2020-01-19 13:31 | BD_ITS ---
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 COMPARISON: Comparison is made with prior study dated 07/27/2008. FINDINGS: Lumbar Spine (L1-L4): g/cm2 (1.615) / T-score (3.5) / Z-score (5.0) Findings are suggestive of normal bone density with a low fracture risk. Left Femur Total: g/cm2 (1.032) / T-score (0.2) / Z-score (1.4) Left Femoral Neck: g/cm2 (0.997) / T-score (-0.3) / Z-score (1.2) Right Femur Total: g/cm2 (0.905) / T-score (-0.8) / Z-score (0.4) Right Femoral Neck: g/cm2 (0.971) / T-score (-0.5) / Z-score (1.0) The T-Scores on the most recent prior examination were: Lumbar Spine (L1-L4): There has been worsening of bone density since the previous examination. Left Femur Total: which represents a worsening of 14.4%. Right Femur Total: which represents a worsening of 8.3%. BD/Dexa Bone Density Study IMPRESSION: The patient is considered normal as outlined below according to World Lamin Organization (WHO) criteria with a low fracture risk. There has been worsening of bone density since the previous examination. Reference Information: The T-score is the number of standard deviations above or below the standard which is normal for young adults at their peak bone mineral density. The World Health Organization (WHO) interprets the T-scores as follows: Above -1 Normal bone density Between -1 and -2.5 Osteopenia Equal to / or below -2.5 Osteoporosis As a practical clinical guideline, osteopenia may be graded as follows: Mild -1 through -1.5 Moderate -1.6 through -2.0 Severe -2.1 through -2.4 The Z-score is the number of standard deviations above or below age-matched controls. A Z-score of less than -1.5 would be considered abnormal. References: 1. NIH Osteoporosis and Related Bone Diseases www osteo.org 2. International Society for Clinical Densitometry www iscd.org 3. National Osteoporosis Foundation www nof.org Electronically Signed: Isaias Munoz, at 15:34 EDT , Service support ,
== END ==
PROVIDERS: PCP Family Medicine; Referring Provider Family Medicine; Visit Provider Family Medicine
DX: Z12.31 Encounter for screening mammogram for malignant neoplasm of breast (principal); Z78.0 Asymptomatic menopausal state; Z80.3 Family history of malignant neoplasm of breast
CPT/HCPCS: 77063; 77067; 77080

== ENCOUNTER 2020-02-17 13:20 | Outpatient (RCR) | payer MEDICARE, BC, SELFPAY ==
[2019-07-30 10:10] VITALS: BMI 32.1
== END 2020-02-22 23:59 ==
LOC: EMPH 13:20
PROVIDERS: PCP Family Medicine; Visit Provider Family Medicine Geriatric Medicine
DX: Z03.818 Encounter for observation for suspected exposure to other biological agents ruled out (principal)
CPT/HCPCS: 87426

== ENCOUNTER 2020-03-23 14:11 | Outpatient (RCR) | payer MEDICARE, BC, SELFPAY ==
[2019-07-30 10:10] VITALS: BMI 32.1
== END 2020-03-24 23:59 ==
LOC: EMPH 14:11
PROVIDERS: PCP Family Medicine; Visit Provider Family Medicine Geriatric Medicine
DX: Z03.818 Encounter for observation for suspected exposure to other biological agents ruled out (principal)
CPT/HCPCS: 87426

== ENCOUNTER 2020-04-22 14:08 | Outpatient (RCR) | payer MEDICARE, BC, SELFPAY ==
[2019-07-30 10:10] VITALS: BMI 32.1
== END 2020-04-24 23:59 ==
LOC: EMPH 14:08
PROVIDERS: PCP Family Medicine; Visit Provider Family Medicine Geriatric Medicine
DX: Z03.818 Encounter for observation for suspected exposure to other biological agents ruled out (principal)
CPT/HCPCS: 87426

== ENCOUNTER 2020-06-13 07:33 | Outpatient (RCR) | payer MEDICARE, BC, SELFPAY ==
[2019-07-30 10:10] VITALS: BMI 32.1
== END 2020-06-22 23:59 ==
LOC: EMPH 07:33
PROVIDERS: PCP Family Medicine; Visit Provider Family Medicine Geriatric Medicine
DX: Z03.818 Encounter for observation for suspected exposure to other biological agents ruled out (principal)
CPT/HCPCS: 87426

== ENCOUNTER 2020-09-14 12:42 | Outpatient (RCR) | payer MEDICARE, BC, SELFPAY ==
[2019-07-30 10:10] VITALS: BMI 32.1
== END 2020-09-21 23:59 ==
LOC: EMPH 12:42
PROVIDERS: PCP Family Medicine; Visit Provider Family Medicine Geriatric Medicine
DX: Z03.818 Encounter for observation for suspected exposure to other biological agents ruled out (principal)
CPT/HCPCS: 87426

== ENCOUNTER → 2020-11-03 12:43 | Outpatient (CLI) | payer MEDICARE, BC, SELFPAY ==
[2019-07-30 10:10] VITALS: BMI 32.1
--- NOTE | 2020-11-03 12:45 | VDLE_ITS ---
Reason For Study: swelling RIGHT LEFT CFV is compressible, spontaneous, phasic, CFV is compressible, spontaneous, phasic, competent and demonstrates normal competent, and demonstrates normal augmentation. augmentation. FV is compressible, spontaneous, phasic, FV is compressible, spontaneous, phasic, competent and demonstrates normal competent and demonstrates normal augmentation. augmentation. POP V is compressible, spontaneous, phasic, POP V is compressible, spontaneous, phasic, competent and demonstrates normal competent and demonstrates normal augmentation. augmentation. T/P Trunk is compressible. T/P Trunk is compressible. PTV is compressible. PTV is compressible. RT PerV is compressible. LT PerV is compressible. SFJ is competent and measures .98 cm. SFJ is competent and measures .83 cm. GSV proximal thigh measures .42 x .43 cm. GSV proximal thigh measures .43 x .45 cm. GSV at knee measures .55 x .5 cm. GSV at knee measures .27 x .26 cm. GSV INCOMPETENT throughout for greater than GSV INCOMPETENT throughout for greater than 0.5 seconds. 0.5 seconds. SSV proximal calf is INCOMPETENT for greater SSV proximal calf is INCOMPETENT for greater than 0.5 seconds and measures .36 x .39 cm. than 0.5 seconds and measures .29 x .32 cm. Lateral ASV at the groin measures .36 x .36 ASV proximal thigh is INCOMPETENT for greater cm and is incompetent for greater than .5 than 0.5 seconds and measures .21 x .25 cm. seconds. ASV proximal thigh is INCOMPETENT for greater than 0.5 seconds and measures .53 x .49 cm. ASV distal thigh is INCOMPETENT for greater than 0.5 seconds and measures .4 x .4 cm. ASV proximal calf is INCOMPETENT for greater than 0.5 seconds and measures .35 x .4 cm. Procedure This is a venous duplex using B-mode, color flow and spectral Doppler. Exam performed in department. The exam was diagnostic. VL/Venous Duplex US - Zi Extrem Interpretation Summary Bilateral no DVT. Right GSV measuring 9.8, 4.3, 5.5 mm with reflux throughout. LSV 3.9 mm with reflux. ASV 5.3, 4, 4 mm with reflux throughout the thigh. Left GSV 8.3, 4.5, 2 .7 mm with reflux. LSV small at 3.2 mm with reflux. ASV in the proximal thigh 2.5 mm with reflux. Ordering Physician: Fredy Allen Performed By: Damir Farrell RVT
== END ==
PROVIDERS: PCP Family Medicine; Referring Provider Surgery Vascular Surgery; Visit Provider Surgery Vascular Surgery
DX: I83.893 Varicose veins of bilateral lower extremities with other complications (principal); M79.601 Pain in right arm; M79.602 Pain in left arm; M79.89 Other specified soft tissue disorders; I10 Essential (primary) hypertension
CPT/HCPCS: 93970

== ENCOUNTER 2020-11-22 13:38 | Outpatient (RCR) | payer MEDICARE, BC, SELFPAY ==
[2019-07-30 10:10] VITALS: BMI 32.1
== END 2020-11-22 23:59 ==
LOC: EMPH 13:38
PROVIDERS: PCP Family Medicine; Visit Provider Family Medicine Geriatric Medicine
DX: Z03.818 Encounter for observation for suspected exposure to other biological agents ruled out (principal)
CPT/HCPCS: 87426

== ENCOUNTER 2020-12-19 12:16 | Outpatient (RCR) | payer MEDICARE, BC, SELFPAY ==
[2020-11-23 00:16] VITALS: BMI 32.1
== END 2020-12-22 23:59 ==
LOC: EMPH 12:16
PROVIDERS: PCP Family Medicine; Visit Provider Family Medicine Geriatric Medicine
DX: Z03.818 Encounter for observation for suspected exposure to other biological agents ruled out (principal)
CPT/HCPCS: 87426

== ENCOUNTER 2021-05-08 15:35 | Outpatient (RCR) | payer MEDICARE, BC, SELFPAY ==
[2020-12-23 00:12] VITALS: BMI 32.1
== END 2021-05-22 23:59 ==
LOC: EMPH 15:35
PROVIDERS: PCP Family Medicine; Visit Provider Family Medicine Geriatric Medicine
DX: Z03.818 Encounter for observation for suspected exposure to other biological agents ruled out (principal)
CPT/HCPCS: 87426

== ENCOUNTER 2021-06-02 09:52 | Outpatient (CLI) | payer MEDICARE, BC, SELFPAY ==
--- NOTE | 2021-06-02 09:55 | BI_ITS ---
MAMMOGRAPHY - BILATERAL SCREENING REASON FOR EXAM: Female, 65 years old. Routine annual screening examination. PERTINENT HISTORY: Aunt with breast cancer. TECHNIQUE: Digital bilateral breast sg (3D mammographic acquisition) in the CC and MLO projections. 2-D mediolateral oblique (MLO) and craniocaudad (CC) views of both breasts were obtained. CAD: Full Field Digital Mammography with Computer Added Detection was performed. COMPARISON: Comparison is made with prior study dated 01/19/2020 and 03/13/2018. FINDINGS: Breast Composition: The breasts are almost entirely fatty. There are no dominant masses or suspicious calcifications. Stable small benign-appearing bilateral axillary lymph nodes. No other significant abnormalities are identified. There has been no significant change since the prior study. BI/SCRN MAMM (CAD)W/SG BILAT IMPRESSION: Stable bilateral screening mammogram. Yearly follow-up mammogram recommended. (A) ASSESSMENT CATEGORY: BIRADS Category 2: Benign. A letter regarding these results will be sent to the patient by the facility within 30 days. Approximately 10% of breast cancers are not detected by mammography. A normal mammogram should not delay biopsy of a clinically suspicious abnormality. [id number] Electronically Signed: Isaias Munoz MD at 10:43 EST ,
== END 2021-06-02 23:59 | disposition home or self-care (01) ==
LOC: OPBI 09:53
PROVIDERS: PCP Family Medicine; Referring Provider Family Medicine; Visit Provider Family Medicine
DX: Z12.31 Encounter for screening mammogram for malignant neoplasm of breast (principal)
CPT/HCPCS: 77063; 77067

== ENCOUNTER 2021-06-15 07:15 | Outpatient (CLI) | payer MEDICARE, BC, SELFPAY ==
[2021-06-15 08:09] LABS: Absolute Lymphocyte Count 1.46 X10^3/uL (0.83-4.51); Absolute Neutrophil Count 2.3 X10^3/uL (2.0-7.7); Basophil# 0.04 X10^3/uL; Basophil% 0.9 % (0-1); Eosinophil# 0.14 X10^3/uL; Eosinophils% 3.1 % (0-5); Hematocrit 40.5 % (37-47); Hemoglobin 13.7 g/dL (12.0-15.0); Lymphocyte # 1.46 X10^3/ul (0.83-4.51); Lymphocyte % 32.5 % (19-41); Mean Corp Hgb Conc 33.8 g/dL (32-36); Mean Corpuscular Hgb 30.6 pg (27.0-32.0); Mean Corpuscular Volume 90.6 fL (81-99); Mean Platelet Vol. 10.3 fl (6.2-12.0); Monocyte# 0.49 X10^3/uL; Monocyte% 10.9 % (0-10); NRBC Flagged by Analyzer 0 % (0-5); Neutrophil # 2.34 X10^3/uL (2.7-7.7); Neutrophil % 52.2 % (47-70); Platelet Count 273 K/mm3 (150-450); RBC Distribution Width CV 12.2 % (11.6-14.6); RBC Distribution Width SD 40.5 fl (35.1-43.9); Red Blood Count 4.47 M/mm3 (4.2-5.4); White Blood Count 4.5 K/mm3 (4.4-11.0)
[2021-06-15 08:35] LABS: Microalbumin,Random Urine 8.9 mg/L (NO RANGE EST.); Microalbumin:Creatinine Ratio 7.8 mg/g CRE (<30 mg/g CRE)
[2021-06-15 08:39] LABS: ALB/GLOB Ratio 1.1 RATIO (0.9-2.4); AST(SGOT) 19 U/L (15-37); Alanine Aminotransfer ALT/SGPT 26 U/L (13-56); Albumin, Serum 3.8 g/dL (3.2-5.0); Alkaline Phosphatase 92 U/L (45-117); Anion Gap 1 (5-15); BUN 15 mg/dL (7-18); BUN/Creat Ratio 20.8 RATIO (10-20); Chloride 104 mmol/L (98-107); Cholesterol 147 mg/dL (200); Creatinine, Serum 0.72 mg/dL (0.55-1.02); EST Glomerular Filtration Rate 86 mL/min (>60); Est Glom Filt Rate - Afr Amer 104 mL/min (>60); Globulin 3.5 g/dL (2.2-4.2); Glucose 93 mg/dL (74-106); High Density Lipoprotein 47 mg/dL; Protein, Total 7.3 g/dL (6.4-8.2); Sodium Level 138 mmol/L (136-145); Triglycerides 77 mg/dL; Very Low Density Lipoprotein 15 mg/dL (5-40)
== END 2021-06-15 23:59 | disposition home or self-care (01) ==
LOC: LAB 07:17
PROVIDERS: PCP Family Medicine; Visit Provider Family Medicine
DX: I10 Essential (primary) hypertension (principal); K21.9 Gastro-esophageal reflux disease without esophagitis
CPT/HCPCS: 36415; 80053; 80061; 82043; 82570; 85025

== ENCOUNTER 2021-07-14 14:30 | Outpatient (RCR) | payer MEDICARE, BC, SELFPAY ==
--- NOTE | 2021-06-06 13:53 | HP.PTEVAL ---
Patient's Visit Information NIKOS NOVOA is a 65 year old F referred to Physical Therapy by Dr. Raheel Benton MD with a diagnosis of LUMBAR SCOLIOSIS, LIST, R GLUT/HIP PAIN AND NOCTURNAL R LEG CRAMPS. Date of Evaluation: 06/06/21 Physical Therapist: Crys Hdz, PT, Cert MDT - Visit Plan Frequency: 1-2x /Week Duration: 4-6 Weeks Plan: DISCUSS POSSIBLE BENEFITS OF AQUATIC THERAPY WITH PATIENT. RIGHT HIP US X 6 INDICATED. POSTURE CORRECTION/STRENGTHENING, INSTRUCTION IN APPROPRIATE BODY MECHANICS AND ACTIVITY MODIFICATIONS. DLS STARTING WITH A NEUTRAL SPINE PROGRESSING ROM TOLERATED. KEV LE ROM, STRETCHING AND STRENGTHENING. HEP INSTRUCTION. 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 HOURS VARY WIDELY FROM ZERO TO 40 HRS A WEEK. Disability: NO. Present symptoms: PATIENT REPORTS SHE IS HERE FOR THE SPASM SHE GETS IN HER RIGHT LEG AT NIGHT. IT CAN BE UP TO 10 MINUTES OR SO THAT SHE CAN'T MOVE. IT IS NOT EVERY NIGHT. SOMETIMES IT IS THE WHOLE LEG. RIGHT HIP BURNING SENSATION COMES AND GOES BUT IS SOMETIMES THERE CONSTANT FOR DAYS. NO LOW BACK PAIN. THE SPASM ONLY OCCURS ROLLING OVER IN BED. DENIES KEV LE NUMBNESS AND TINGLING. NO LLE SX'S. Present since: IT HAS BEEN GOING ON OVER 20 YEARS. Pain Scale: WORST 10/10, LEAST 0/10. Currently: RIGHT HIP PAIN 1/10. Commenced as a result of: NO APPARENT REASON. Symptoms at onset: RIGHT HIP PAIN X 20 YEARS. R LE SPASMS HAVE BEEN GOING ON FOR ABOUT 3 YEARS AND SEEMS TO BE MORE FREQUENT. Worse: ROLLING OVER IN BED CAUSES RIGHT LE SPASM, STANDING STILL INCREASES RIGHT HIP PAIN. WALKING DOES SEEM TO MAKE HER HIP HURT TOO. Better: RUBBING RIGHT HIP OR USING PURCUSSOR. Disturbed sleep: YES. Previous history/Previous treatment: NONE. PATIENT DENIES HX OF BACK PAIN BUT HAS GONE TO A CHIROPRACTOR BECAUSE SHE ISN'T EVEN AND SHE THOUGHT A CHIROPRACTOR COULD HELP. SHE REPORTS SHE HAS GONE OFF AND ON TO A CHIROPRACTOR NEEDED AND SOMETIMES IT HELPS TEMPORARILY BUT A LOT OF TIMES IT DOESN'T. Treatment this episode: NONE. Coughing/sneezing/straining: NEGATIVE. Gait: PATIENT REPORTS SHE HAS BEEN WALKING WITH A LIMP FOR AT LEAST A FEW YEARS AND GETTING WORSE. STATES SHE IS NOT DISTANCE LIMITED BY THE PAIN BECAUSE SHE CAN WALK THROUGH IT. Difficulty initiating urination: NO. DENIES BOWEL AND BLADDER DYSFUNCTION. Accidents: NO. Unexplained weight loss: NO. Imaging: NONE RECENT. 2015 LUMBAR X-RAY: STUDY: X-RAY - LUMBAR SPINE. REASON FOR EXAM: Female, 60 years old. Chronic low back pain. TECHNIQUE: 3 view(s) of the lumbar spine were obtained. COMPARISON: None. . FINDINGS: Normal lumbar lordosis. There is a dextroscoliosis of the lumbar spine. There is a normal alignment of the vertebrae. There is multilevel endplate spondylosis of the lumbar vertebrae. There is. multi-level degenerative disc disease with multi-level disc space. narrowing. Facet joint osteoarthritis. Moderate amount of fecal material is seen in the colon. . RAD/Lumbar Spine 2 or 3 Views. IMPRESSION: Degenerative changes of the spine, as detailed above. . Dextroscoliosis. . Electronically Signed: Isaias Munoz MD. at 15:57 EDT. Tel [phone], Service support [phone], . . PMH/Recent major surgery: HTN. CENTRAL VEIN OCCLUSSION AGE 46. L THYROID REMOVAL - PRE-CANCER. SCOLIOSIS. OTHER: PATIENT REPORTS SHE DOES NOT THINK THE SPASM IN HER LEG IS COMING FROM HER BACK. SHE STATES SHE REALLY DOES NOT KNOW THE SOURCE OF THE SPASM BUT SHE HAS ALWAYS THOUGH IT WAS COMING FROM HER HIP. - Objective Sitting/Standing Posture: SCOLIOSIS. L ILIAC CREST HIGHER THAN RIGHT. LEANS TO THE RIGHT IN STANDING AND WALKING. Active Correction of posture: BETTER - DECREASES RIGHT HIP PAIN IN SITTING. Other Observations: THIS PATIENT AMBULATES INDEP'LY INTO PT WITH GOOD CADANCE LIMPING ON HER RIGHT LE AND LEANING TO THE RIGHT. Motor deficit: KEV LE STRENGTH GROSSLY 5/5 WITH MMT'ING EXCEPT RIGHT HIP 4-/5 AND LEFT 4/5. Sensory deficit: KEV LE LIGHT TOUCH SENSATION GROSSLY INTACT AND SYMMETRICAL. ROM deficit: KEV LE'S WFL EXCEPT RIGHT HIP IR AND ER TIGHTER THAN LEFT AND END RANGE TESTING PROVOKES INCREASED RIGHT HIP PAIN ESPECIALLY INTO INTERNAL ROTATION. MILD INCREASED RIGHT HIP PAIN REPORTED AFTER RIGHT HIP ROM AND MOTOR TESTING. Dural Signs: NEGATIVE KEV LE'S. Lumbar mvmt loss: flex - NIL. ext - MOD. R SG - MIN. L SG - MOD. PATIENT REPORTS MILD INCREASED RIGHT HIP PAIN WITH RIGHT SG TESTING. Core strength: POOR. Palpation: TENDERNESS WITH PALPATION OVER THE RIGHT GREATER TROCH REGION. OTHER: PATIENT REPORTED MILD INCREASE IN RIGHT HIP PAIN AFTER TESTING TODAY BUT NOT DUE TO ANY PARTICULAR TEST. - Balance/Special Test Scores Oswestry Low Back Score: 6 - Goals Goal 1:: DECREASE C/O RIGHT LE SX'S. Goal Time Frame: 4-6 Weeks Goal 2:: IMPROVE STANDING, WALKING AND SLEEP FUNCTION Goal Time Frame: 4-6 Weeks Goal 3:: INSTRUCT IN PROPHYLAXIS Goal Time Frame: 4-6 Weeks - Anticipated Interventions Patient/Client Instruction: Educate patient on: Condition, Plan of Care, Risk Factors For the Purpose of:: To improve self management Therapeutic Exercise to Include: Strength training, Body mechanics, Postural training, Flexibilty training, Gait and locomotor training, Neuromotor development, In an aquatic setting, Dynamic Lumbar Stabilization For the Purpose of:: To decrease pain, To improve muscle performance and motor function, To increase tolerance to activity/condition/position, To improve ability of physical actions for home/community/work/leisure, To improve gait and locomotor functions Cryotherapy (ice pack, ice massage): Yes Thermo therapy (hot pack): Yes Ultrasound (thermal/non thermal): Yes For the Purpose of:: To decrease pain, To improve nutrient delivery to tissue Thank you for the opportunity to evaluate your patient. For Medicare and Medicare HMO plans, please review the plan of care and approve it. It will need to be FAXED BACK to us at [phone] for Medicare purposes. For Medicare only, by signing this I certify the plan of care. Please let me know if there are questions or concerns regarding this plan of care. Physician Signature: Date:
== END 2021-07-14 19:00 | disposition home or self-care (01) ==
LOC: PT 14:30
PROVIDERS: PCP Family Medicine; Referring Provider Family Medicine; Visit Provider Family Medicine
DX: M41.9 Scoliosis, unspecified (principal); M25.551 Pain in right hip; G47.62 Sleep related leg cramps
CPT/HCPCS: 97162; 97530

== ENCOUNTER → 2022-01-19 | Outpatient (CLI) | payer MEDICARE, BC, SELFPAY ==
--- NOTE | 2022-01-19 09:09 | MRI_ITS ---
HISTORY: JOINT DISORDER. Right hip pain x 10 years, NKI. TECHNIQUE: Multiplanar and multisequence MR images of the right hip were obtained without contrast. 400 images. COMPARISON: CT 06/07/2016. FINDINGS: BONE: Scoliosis and degenerative bone and plate changes of the lumbar spine. No acute fracture, femoral head avascular necrosis, or other significant bone marrow signal abnormality in the pelvis. JOINT: Mild degenerative changes of the bilateral hips] without significant joint effusion. Normal alignment without dislocation. Limited evaluation of the labrum on nonarthrographic exam. TENDONS: Bilateral gluteal tendinopathy. Intact bilateral rectus femoris, iliopsoas, and hamstring tendinous attachments. SOFT TISSUES: Left gluteal intramuscular edema with adjacent increased signal and discontinuity of the iliotibial band distal to the iliotibial tubercle. Unremarkable right iliotibial band. No abnormal fluid collections or significant bursitis. Preservation of fat surrounding the right sciatic nerve. PELVIS: Prominent bladder wall likely secondary to underdistention. Absent uterus. No significant free fluid. MRI/Lower Ext Joint Only (Routine) IMPRESSION: Bilateral gluteal tendinopathy. Tear of the left iliotibial band with adjacent gluteal intramuscular edema. Unremarkable right iliotibial band. Electronically Signed: Keyana Snow MD at 13:32 EDT ,
== END | disposition home or self-care (01) ==
LOC: MRI 09:03
PROVIDERS: PCP Family Medicine; Referring Provider Specialist; Visit Provider Specialist
DX: M25.851 Other specified joint disorders, right hip (principal); M25.551 Pain in right hip
CPT/HCPCS: 73721

== ENCOUNTER 2022-03-02 14:00 | Outpatient (RCR) | payer MEDICARE, BC, SELFPAY ==
--- NOTE | 2022-02-02 08:08 | HP.PTEVAL_ITS ---
Patient's Visit Information NIKOS NOVOA is a 66 year old F referred to Physical Therapy by Dr. Elmer Pastrana MD with a diagnosis of Trochanteric bursitis R hip, scoliosis. Date of Evaluation: 02/02/22 Physical Therapist: KEN Briceno - Visit Plan Frequency: 2-3x /Week Duration: 6 Weeks Plan: 2-3X. week for 6 weeks for Core stability, stretching of the LB, Stretching of R piriformis and IT band, hip strength, postural exercises, gait training, with possible trial of MT and US to the R hip - Subjective Pt reports that the Dr does not think that she needs hip surgery. They feel that her pain is more from her back. Her R hip has been bothering her for 20 years and sometimes the L does as well. Did they did an MRI of B hips but not the spine. We are going to see what PT does before goes to Back Dr. Current Sx: She has a burn R lateral hip. 98% of the time it does not go down farther down the leg but when it does she can not move and it shooting pain all the way to the foot and that happened a year ago. She feels that her R leg is not weak. She has no issue up and down stairs. She is better in standing. She is feeling 2/10 pain now sitting. She was told that she might have some arthritis in her hips. She has a history of L IT Band tear year ago. She is sleeping fine but not due to the pain. Pt feels that the R leg wants to give out on her at times. - Pain R hip pain Pain Intensity (Out of 10): 2 Pain Intensity Range: 8 L hip pain Pain Intensity (Out of 10): 0 Pain Intensity Range: 3 - Objective Gait: Pt walks with decrease stance time on the R LE and trunk shifted towards the R side due to scoliosis with trendelenburg gait. Trunk AROM: flex 100%, Ext 50%, SB R 50%, and SB L 75%. R hip flex 13.8# and L hip flex 15.1#. R knee ext 20.4# and L knee ext 21.2#. R knee flex 9# and L knee flex 9#. Patella DTR 2+/3. -SLR B. Tight R piriformis and tight R IT BAND (slight L piriformis tightness and no IT BAND tightness on the L). Palpation: tender over the R greater trochanter and along the piriformis tendon/glut - Balance/Special Test Scores Lower Extremity Functional Score: 69 - Goals Goal 1:: I HEP Goal Time Frame: 6-8 Weeks Goal 2:: Decrease freq of R hip pain to a few times a week and less than 2/10 when it does occur. Goal Time Frame: 6-8 Weeks Goal 3:: Be able to stretch R IT Band and Piriformis with no pain Goal Time Frame: 6-8 Weeks Goal 4:: Be able to walk with a more fluid gait pattern Goal Time Frame: 6-8 Weeks - Rehabilitation Potential Rehabilitation Potential: Good - Anticipated Interventions Patient/Client Instruction: Educate patient on: Condition, Plan of Care For the Purpose of:: To decrease pain, To increase ROM, To improve nutrient deli very to tissue, To improve muscle performance and motor function, To improve ability to perform ADL's, To increase tolerance to activity/condition/position, To improve performance and independence with ADL's, To decrease level of supervision to perform tasks, To improve ability of physical actions for home/community/work/leisure, To improve gait and locomotor functions, To improve health of tissue, To decrease soft tissue restriction, To increase flexibility/ROM Therapeutic Exercise to Include: Strength training, Body mechanics, Postural training, Flexibilty training, Passive ROM, Active ROM, Dynamic Lumbar Stabilization For the Purpose of:: To decrease pain, To increase ROM, To improve nutrient delivery to tissue, To increase oxygenation perfusion, To improve muscle performance and motor function, To improve ability to perform ADL's, To increase tolerance to activity/condition/position, To improve performance and independence with ADL's, To decrease level of supervision to perform tasks, To improve ability of physical actions for home/community/work/leisure, To improve gait and locomotor functions, To improve health of tissue, To decrease soft tissue restriction, To increase flexibility/ROM Functional Training to Include: Gait training For the Purpose of:: To improve gait and locomotor functions Manual Therapy Techniques to Include: Mobilization, Passive ROM, Functional dry needling, Soft tissue mobilization For the Purpose of:: To decrease pain, To increase ROM, To improve nutrient delivery to tissue, To increase oxygenation perfusion, To improve muscle performance and motor function, To improve ability to perform ADL's, To increase tolerance to activity/condition/position, To improve performance and independence with ADL's, To improve ability of physical actions for home/community/work/leisure, To improve gait and locomotor functions, To improve health of tissue, To decrease soft tissue restriction, To increase flexibility/ROM Ultrasound (thermal/non thermal): Yes For the Purpose of:: To decrease pain, To decrease swelling/inflammation, To increase ROM, To improve nutrient delivery to tissue, To improve muscle performance and motor function Thank you for the opportunity to evaluate your patient. For Medicare and Medicare HMO plans, please review the plan of care and approve it. It will need to be FAXED BACK to us at [phone] for Medicare purposes. For Medicare only, by signing this I certify the plan of care. Please let me know if there are questions or concerns regarding this plan of care. Physician Signature:____ Date:
--- NOTE | 2022-03-02 14:32 | HP.PTDCSUM ---
It has been my pleasure to treat NIKOS NOVOA referred by Dr. Elmer Pastrana MD, with the diagnosis of Trochanteric bursitis R hip, scoliosis for a total of 9 visit(s). Discharge Date: 03/02/22 Please see the following information for a summary of their discharge status. Subjective: Pt feels that she is walking straighter and now walking with as much effort. Pt still occ gets stabbing pain in her legs but it is not constant and random. Pt is hoping that she can continue her exercises and continue to feel better. R hip pain Pain Intensity (Out of 10): 1 L hip pain Pain Intensity (Out of 10): 1 % Improvement: 60 Objective/Function: Gait: Pt is walking with less of a wobble gait pattern. SHe is I with HEP including blue band mid rows and palloff press Goal 1:: I HEP Goal Progress: Goal Met Goal 2:: Decrease freq of R hip pain to a few times a week and less than 2/10 when it does occur. Goal Progress: Goal Met Goal 3:: Be able to stretch R IT Band and Piriformis with no pain Goal Progress: Goal Met Goal 4:: Be able to walk with a more fluid gait pattern Goal Progress: Progressing Plan: DC PT to HEP Discharge Comments: DC PT to HEP If there are questions or concerns regarding this patient's physical therapy, please feel free to call me at [phone]. Thank you for the referral of this patient. Sincerely, Charla Garcia, MPT Balance/Gait/Functional tests - Balance/Special Test Scores Lower Extremity Functional Score: 75
== END 2022-03-02 15:08 | disposition home or self-care (01) ==
LOC: PT 14:00
PROVIDERS: PCP Family Medicine; Referring Provider Specialist; Visit Provider Specialist
DX: M70.61 Trochanteric bursitis, right hip (principal); M41.9 Scoliosis, unspecified
CPT/HCPCS: 97110; 97162; 97530

== ENCOUNTER → 2022-06-18 | Outpatient (CLI) | payer MEDICARE, BC, SELFPAY ==
[2022-06-18 12:41] LABS: Absolute Lymphocyte Count 1.12 X10^3/uL (0.83-4.51); Absolute Neutrophil Count 3.7 X10^3/uL (2.0-7.7); Basophil# 0.04 X10^3/uL; Basophil% 0.7 % (0-1); Eosinophil# 0.12 X10^3/uL; Eosinophils% 2.2 % (0-5); Hematocrit 39.5 % (37-47); Hemoglobin 12.9 g/dL (12.0-15.0); Lymphocyte # 1.12 X10^3/ul (0.83-4.51); Lymphocyte % 20.5 % (19-41); Mean Corp Hgb Conc 32.7 g/dL (32-36); Mean Corpuscular Hgb 30.7 pg (27.0-32.0); Mean Platelet Vol. 10.3 fl (6.2-12.0); Monocyte% 9.2 % (0-10); NRBC Flagged by Analyzer 0 % (0-5); Neutrophil # 3.66 X10^3/uL (2.7-7.7); Platelet Count 280 K/mm3 (150-450); RBC Distribution Width CV 12.5 % (11.6-14.6); RBC Distribution Width SD 43.1 fl (35.1-43.9); White Blood Count 5.5 K/mm3 (4.4-11.0)
[2022-06-18 12:52] LABS: ALB/GLOB Ratio 1.2 RATIO (0.9-2.4); AST(SGOT) 21 U/L (15-37); Alanine Aminotransfer ALT/SGPT 27 U/L (13-56); Albumin, Serum 3.7 g/dL (3.2-5.0); Alkaline Phosphatase 75 U/L (45-117); Anion Gap 2 (5-15); BUN 17 mg/dL (7-18); BUN/Creat Ratio 20.8 RATIO (10-20); Calcium,Total 9.2 mg/dL (8.5-10.1); Chloride 102 mmol/L (98-107); Creatinine, Serum 0.82 mg/dL (0.55-1.02); EST Glomerular Filtration Rate 74 mL/min (>60); Est Glom Filt Rate - Afr Amer 90 mL/min (>60); Globulin 3.1 g/dL (2.2-4.2); Glucose 105 mg/dL (74-106); Magnesium 2.1 mg/dL (1.6-2.6); Potassium 3.7 mmol/L (3.5-5.1); Protein, Total 6.8 g/dL (6.4-8.2); Sodium Level 137 mmol/L (136-145)
[2022-06-18 13:09] LABS: Thyroid Stim Hormone (TSH) 0.88 uIU/mL (0.358-3.74)
[2022-06-18 13:11] LABS: Microalbumin,Random Urine 9.2 mg/L (NO RANGE EST.); Microalbumin:Creatinine Ratio 13.9 mg/g CRE (<30 mg/g CRE)
== END | disposition home or self-care (01) ==
LOC: LAB.FUTURE 10:31 → MFPLAB 10:31
PROVIDERS: Nurse Practitioner Family; PCP Family Medicine; Visit Provider Family Medicine
DX: I10 Essential (primary) hypertension (principal); E87.6 Hypokalemia; G47.9 Sleep disorder, unspecified
CPT/HCPCS: 80053; 82043; 82570; 83735; 84443; 85025

== ENCOUNTER → 2023-03-26 | Outpatient (CLI) | payer MEDICARE, BC, SELFPAY ==
--- OUTSIDE RECORDS SUMMARY | 2023-03-26 11:49 | XMS RPT_ITS | CCD ---
Author Name Unknown Address [address] [place] [address] Organization [facility] Care Team Providers [employer] Detailer Name Role Phone Carisa Costa [place] Unavailable Pamela BUSTAMANTE, Jayant Arnold Unavailable [phone] Allergies Allergy Classification Reported Allergen(s) Allergy Type Date of Onset Reaction(s) Facility (2 sources) amLOD[facility]ine drug allergy 04-25-2015 [facility] Work Phone: Medications Completed/Discontinued Medications Medication Drug Class(es) Dates Sig (Normalized) Sig (Original) aspirin 81 mg oral strip (4 sources) Nonsteroidal Anti-inflammatory Drug Start: 04-25-2015 take 1 tablet by mouth once daily ASPIRIN 81 MG TABS One tablet by mouth daily ASPIRIN [id number] Verónica Masters RN Problems Active Problems Problem Classification Problem Date Documented Da te Episodic/Chronic Hypertension with complications and secondary hypertension (2 sources) Essential (primary) hypertension; Translations: [Essential (primary) hypertension] Onset: 06-09-2015 06-09-2015 Chronic Other acquired deformities (2 sources) Scoliosis of lumbar spine; Translations: [Other forms of scoliosis, lumbar region] Onset: 10-25-2015 10-25-2015 Chronic Past or Other Problems Problem Classification Problem Date Documented Da te Episodic/Chronic Conditions associated with dizziness or vertigo (2 sources) Dizziness; Translations: [Dizziness and giddiness] Onset: 04-25-2015 04-25-2015 Episodic Other bone disease and musculoskeletal deformities (6 sources) Pelvic somatic dysfunction; Translations: [Segmental and somatic dysfunction] Onset: 04-03-2016 04-03-2016 Episodic Other gastrointestinal disorders (2 sources) Diarrhea; Translations: [Diarrhea, unspecified] Onset: 07-12-2016 07-12-2016 Episodic Syncope (2 sources) Syncope and collapse; Translations: [Syncope and collapse] Onset: 04-25-2015 04-25-2015 Episodic Results Test Name Value Interpretation Reference Range Facil ity Vital Signs Date Time Vital Sign Value Performing Clinician Facility 07-12-2016 09:17-0400 BMI (Body Mass Index) 30.98 kg/m2 Carisa Dossi DC [facility] Work Phone: 07-12-2016 09:17-0400 Body Temperature 98 [degF] Carisa Dossi DC [facility] Work Phone: 07-12-2016 09:17-0400 Body Temperature 98.01 [degF] Carisa Dossi DC [facility] Work Phone: 07-12-2016 09:17-0400 BP Diastolic 88 mm[Hg] Carisa Dossi DC [facility] Work Phone: 07-12-2016 09:17-0400 BP Systolic 133 mm[Hg] Carisa Dossi DC [facility] Work Phone: 07-12-2016 09:17-0400 BSA (Body Surface Area) 1.74 m2 Carisa Dossi DC [facility] Work Phone: 07-12-2016 09:17-0400 Height 154.94 cm Carisa Dossi DC [facility] Work Phone: 07-12-2016 09:17-0400 Pulse (Heart Rate) 67 /min Carisa Dossi DC [facility] Work Phone: 07-12-2016 09:17-0400 Pulse Oximetry 97 % Carisa Dossi DC [facility] Work Phone: 07-12-2016 09:17-0400 Respiratory Rate 16 /min Carisa Dossi DC [facility] Work Phone: 07-12-2016 09:17-0400 Weight 74.39 kg Carisa Dossi DC [facility] Work Phone: 04-27-2015 14:09-0500 BP Diastolic 70 mm[Hg] Carisa Dossi DC [facility] Work Phone: 04-27-2015 14:09-0500 BP Systolic 90 mm[Hg] Carisa Dossi DC [facility] Work Phone: 04-27-2015 14:09-0500 Pulse (Heart Rate) 80 /min Carisa Dossi DC [facility] Work Phone: Procedures Date Procedure Procedure Detail Performing Clinician Start: 07-31-2016 End: 08-01-2016 Chiropractic manipulation Carisa Wilder Dossi DC Work Phone: Start: 07-31-2016 End: 08-01-2016 Mechanical traction therapy Carisa Tina Mario i DC Work Phone: Start: 07-31-2016 End: 08-01-2016 Ultrasound therapy Carisa Tina Dossi DC Work Phone: Start: 04-03-2016 End: 04-03-2016 Chiropractic manipulation Carisa Tina Dossi DC Work Phone: Start: 04-03-2016 End: 04-03-2016 Electric stimulation therapy Carisa B Dos si DC Work Phone: Start: 04-03-2016 End: 04-03-2016 Mechanical traction therapy Carisa Tina Mario i DC Work Phone: Start: 12-13-2015 End: 12-13-2015 COMPUTER LABORATORY TECHNICIAN Dangelo Norwood MD Start: 12-13-2015 End: 12-13-2015 Follow Up Appt 6 months Catalina Cardoso Start: 11-15-2015 End: 11-15-2015 Chiropract manj 1-2 regions Carisa Wilder Mario i DC Work Phone: Start: 11-15-2015 End: 11-15-2015 Electric stimulation therapy Carisa Wilder Dos si DC Work Phone: Start: 11-15-2015 End: 11-15-2015 Massage therapy Carisa Wilder Dossi DC Work Phone: Start: 11-08-2015 End: 11-08-2015 Chiropract manj 1-2 regions Carisa B Mario i DC Work Phone: Start: 11-08-2015 End: 11-08-2015 Electric stimulation therapy Carisa B Dos si DC Work Phone: Start: 11-08-2015 End: 11-08-2015 Massage therapy Carisa B Dossi DC Work Phone: Start: 11-07-2015 End: 11-07-2015 Chiropract manj 1-2 regions Carisa B Mario i DC Work Phone: Start: 11-07-2015 End: 11-07-2015 Electric stimulation therapy Carisa B Dos si DC Work Phone: Start: 11-07-2015 End: 11-07-2015 Massage therapy Carisa B Dossi DC Work Phone: Start: 11-01-2015 End: 11-01-2015 Chiropract manj 1-2 regions Carisa B Mario i DC Work Phone: Start: 11-01-2015 End: 11-01-2015 Electric stimulation therapy Carisa B Dos si DC Work Phone: Start: 11-01-2015 End: 11-01-2015 Massage therapy Carisa B Dossi DC Work Phone: Start: 06-09-2015 End: 06-19-2016 Ambulatory BP Monitor 24 HR Dangelo Mendez i, MD Start: 06-09-2015 End: 06-09-2015 PHILIP Norwood MD Start: 06-09-2015 End: 06-09-2015 Follow Up Appt 6 months Catalina Cardoso Start: 04-27-2015 End: 04-27-2015 PHILIP Norwood MD Start: 04-27-2015 End: 05-10-2015 Alisa Norwood MD Start: 04-27-2015 End: 04-27-2015 Follow Up Appt 6 weeks Dangelo Norwood MD Plan of Treatment Date Care Activity Detail Author Start: 06-27-2017 End: 06-27-2017 Appointment Appointment [facility] Work Phone: Start: 08-03-2016 End: 08-03-2016 Appointment Appointment [facility] Work Phone: Start: 07-31-2016 End: 08-01-2016 Follow up Appt 1x/week Follow up Appt 1x/week [facility] Work Phone: Start: 07-12-2016 End: 07-12-2016 Diagnostic colonoscopy Colonoscopy [facility] Work Phone: Start: 07-12-2016 End: 07-12-2016 Upper GI endoscopy, biopsy Upper gastrointestinal endoscopy; with biopsy [facility] Work Phone: Start: 06-27-2016 End: 06-27-2016 COMPUTER LABORATORY TECHNICIAN COMPUTER LABORATORY TECHNICIAN [facility] Work Phone: Start: 06-27-2016 End: 06-27-2016 Follow Up Appt 1 year Follow Up Appt 1 year [facility] Work Phone: Start: 04-03-2016 End: 04-03-2016 Follow up Appt 1x/week Follow up Appt 1x/week [facility] Work Phone: Start: 12-13-2015 End: 12-13-2015 COMPUTER LABORATORY TECHNICIAN COMPUTER LABORATORY TECHNICIAN [facility] Work Phone: Start: 12-13-2015 End: 12-13-2015 Follow Up Appt 6 months Follow Up Appt 6 months [facility] Work Phone: Start: 11-15-2015 End: 11-15-2015 Follow up Appt 2x/week Follow up Appt 2x/week [facility] Work Phone: Start: 11-08-2015 End: 11-08-2015 Follow up Appt 2x/week Follow up Appt 2x/week [facility] Work Phone: Start: 11-07-2015 End: 11-07-2015 Follow up Appt 3x/week Follow up Appt 3x/week [facility] Work Phone: Start: 11-01-2015 End: 11-01-2015 Follow up Appt 3x/week Follow up Appt 3x/week [facility] Work Phone: Start: 10-25-2015 End: 10-25-2015 X-ray exam of lower spine X-Ray, Spine, Lumbosacral 2-3 views [facility] Work Phone: Start: 06-09-2015 End: 06-19-2016 Ambulatory BP Monitor 24 HR Ambulatory BP Monitor 24 HR [facility] Work Phone: Start: 06-09-2015 End: 06-09-2015 COMPUTER LABORATORY TECHNICIAN COMPUTER LABORATORY TECHNICIAN [facility] Work Phone: Start: 06-09-2015 End: 06-09-2015 Follow Up Appt 6 months Follow Up Appt 6 months [facility] Work Phone: Start: 04-27-2015 End: 04-27-2015 COMPUTER LABORATORY TECHNICIAN COMPUTER LABORATORY TECHNICIAN [facility] Work Phone: Start: 04-27-2015 End: 04-27-2015 Echocardiography Echocardiogram (complete) [facility] Work Phone: Start: 04-27-2015 End: 04-27-2015 Follow Up Appt 6 weeks Follow Up Appt 6 weeks [facility] Work Phone: Additional Source Comments FOR RECORDS PERTAINING TO PATIENTS WHO ARE OR HAVE BEEN ENROLLED IN A CHEMICAL DEPENDENCY/SUBSTANCEABUSE PROGRAM, SOME INFORMATION MAY BE OMITTED. This clinical summary was aggregated from multiple sources. Caution should be exercised in using it in the provision of clinical care. This summary normalizes information from multiple sources, and as a consequence, information in this document may materially change the coding, format and clinical context of patient data. In addition, data may be omitted in some cases. CLINICAL DECISIONS SHOULD BE BASED ON THE PRIMARY CLINICAL RECORDS. [facility]. provides no warranty or guarantee of the accuracy or completeness of information in this document.
[2023-03-26 12:08] LABS: ALB/GLOB Ratio 1.1 RATIO (0.9-2.4); AST(SGOT) 22 U/L (15-37); Alanine Aminotransfer ALT/SGPT 28 U/L (13-56); Albumin, Serum 3.8 g/dL (3.2-5.0); Alkaline Phosphatase 85 U/L (45-117); Anion Gap 3 (5-15); BUN 18 mg/dL (7-18); BUN/Creat Ratio 21.6 RATIO (10-20); Calcium,Total 9.4 mg/dL (8.5-10.1); Chloride 104 mmol/L (98-107); Creatinine, Serum 0.83 mg/dL (0.55-1.02); EST Glomerular Filtration Rate 72 mL/min (>60); Est Glom Filt Rate - Afr Amer 87 mL/min (>60); Globulin 3.4 g/dL (2.2-4.2); Glucose 104 mg/dL (74-106); Protein, Total 7.2 g/dL (6.4-8.2); Sodium Level 139 mmol/L (136-145)
== END | disposition home or self-care (01) ==
PROVIDERS: PCP Family Medicine; Referring Provider Family Medicine; Visit Provider Family Medicine
DX: I10 Essential (primary) hypertension (principal)
CPT/HCPCS: 36415; 80053

== ENCOUNTER → 2023-06-19 | Outpatient (CLI) | payer MEDICARE, BC, SELFPAY ==
--- NOTE | 2023-06-19 10:09 | NEURO ---
NCS and/or EMG Patient Report Ordering Doctor: Omar Hutchins DATE OF SERVICE: 06/19/23 Clinical Summary: 67 year old female patient with symptoms of spasm-like pains in the right thigh. She also endorses back pain. She denies having any abnormal symptoms in the left lower extremity including any pain, numbness, or tingling. Nerve Conduction Studies Summary: The left peroneal-EDB CMAP could not be obtained. Otherwise, nerve conduction studies were within normal ranges. Needle Examination Summary: Needle examination of select muscles of the bilateral lower extremities demonstrated a higher proportion of motor unit action potentials with reduced recruitment, increased amplitude, increased duration, and polyphasia in the right tibialis anterior and peroneus longus muscles. Impression: Chronic neurogenic changes in the right tibialis anterior and peroneus longus muscles are suggestive, but not definitively diagnostic, of an underlying chronic, right L5 radiculopathy. There is no electrodiagnostic evidence of a left lumbosacral radiculopathy. Multi Select Codes Neurology Neurology Interp Codes: 33277-47 Musc test done w/n test comp (interp) (2) and 78217-55 Nrv cndj test 7-8 studies (interp)
== END | disposition home or self-care (01) ==
LOC: PSN 08:40
PROVIDERS: PCP Family Medicine; Referring Provider Orthopaedic Surgery Orthopaedic Surgery of the Spine; Visit Provider Orthopaedic Surgery Orthopaedic Surgery of the Spine
DX: M54.16 Radiculopathy, lumbar region (principal)
CPT/HCPCS: 95886; 95910

== ENCOUNTER → 2023-06-28 | Outpatient (CLI) | payer MEDICARE, BC, SELFPAY ==
--- NOTE | 2023-06-28 07:26 | MRI_ITS ---
STUDY: MRI LUMBAR SPINE WITHOUT CONTRAST REASON FOR EXAM: Female, 67 years old. Pain pain low back and rt leg spasms,NKI, walks with limp TECHNIQUE: Standardized fat and water weighted pulse sequences were obtained in the sagittal and axial planes. COMPARISON: X-ray the lumbar spine dated June 18, 2023. CT of abdomen and pelvis dated June 07, 2016 FINDINGS: No fracture or compression deformity is present. Modic reactive signal and edema is present on both sides of the L3-L4 disc space. There is no evidence of vertebral osteomyelitis or acute discitis. Normal lumbar lordosis. There is a dextroscoliosis of the lumbar spine. Normal conus medullaris that terminates at the L1 level. T12-L1: Normal endplates. Diffuse disc desiccation with mild asymmetric disc space narrowing. Right foraminal shallow disc protrusion and annular tear of the disc. Normal bilateral facet joints. Normal central canal and bilateral lateral recesses. Normal bilateral intervertebral neural foramina. L1-2: Normal endplates. Diffuse disc desiccation with mild disc space narrowing but no significant disc herniation or bulging. Small Schmorl''s node. Normal bilateral facet joints. Normal central canal and bilateral lateral recesses. Normal bilateral intervertebral neural foramina. L2-3: Moderate to severe asymmetric disc space narrowing with mild to moderate Modic endplate degenerative signal and changes. Diffuse disc osteophyte complex asymmetric to the [left lateral recess stenosis and nerve root impingement. Mild facet joint hypertrophy. Mild fluid distention of the right facet joint. Normal central canal and right lateral recess. Mild to moderate left foraminal stenosis with nerve root impingement. Normal right neural foramen. Retrolisthesis of L2 on L3 of 2 mm. L3-4: Moderate to severe asymmetric disc space narrowing and Modic endplate degenerative signal. Diffuse disc osteophyte complex. Mild central canal stenosis and bilateral lateral recess stenosis. Moderate facet joint and ligament flavum hypertrophy. Moderate bilateral foraminal stenosis with nerve root compression. L4-5: Moderate to severe asymmetric disc space narrowing and Modic endplate degenerative signal. Diffuse disc osteophyte complex asymmetric to the right. Moderate to severe right facet joint hypertrophy contributing to right lateral recess stenosis with nerve root compression. Mild central canal stenosis. Normal left lateral recess. Moderate to severe right foraminal stenosis with nerve root compression. Normal left neural foramen. L5-S1: Mild left and moderate to significant right sided asymmetric disc space narrowing with a minor posterior disc spur complex asymmetric to the right causing right lateral recess stenosis with impingement on the descending nerve root. Normal central canal and left lateral recess. Moderate right facet joint hypertrophy. Severe right foraminal stenosis with nerve root compression. Normal left neural foramen. Normal visualized sacral ala. There is mild paraspinal muscular atrophy. MRI/Spine Lumbar (Routine) IMPRESSION: 1. Multilevel degenerative changes, as described above. 2. Moderate to severe right foraminal stenosis with nerve root compression at L4-L5 3. Severe right foraminal stenosis with nerve root compression at L5-S1 Electronically Signed: Kenyon Henriquez MD at 11:57 EDT ,
== END | disposition home or self-care (01) ==
LOC: MRI 07:02
PROVIDERS: PCP Family Medicine; Referring Provider Orthopaedic Surgery Orthopaedic Surgery of the Spine; Visit Provider Orthopaedic Surgery Orthopaedic Surgery of the Spine
DX: M41.9 Scoliosis, unspecified (principal)
CPT/HCPCS: 72148

== ENCOUNTER 2023-08-01 13:30 | Outpatient (RCR) | payer MEDICARE, BC, SELFPAY ==
--- NOTE | 2023-06-26 13:30 | HP.PTEVAL_ITS ---
Patient's Visit Information Visit Information Visit Information: NIKOS NOVOA is a 67 year old F referred to Physical Therapy by Dr. Omar Hutchins MD with a diagnosis of Lumbar scoliosis and Contracture of R quad. Date of Evaluation: 06/26/23 Physical Therapist: Shaun Coy DPT Visit Plan Frequency: 1x/Week Duration: 6 Weeks Plan: -LE strengthening: hamstrings, quads, glutes, hip flexors....working on muscular endurance, can add weight/resistance early on but hip ABD weak 3+/5 -core and postural ex (lumbar/thoracic) pt has L sided scoliosis with R sided lean, stretch R sided musculature -R quad stretching/STM (trial LTR, HP, or US to R thigh before stretching) -dynamic balance ex (SLS...) Pt overall not having a lot of pain, having R quad spasms when turning in bed so may need to help stretch if doing supine plinth ex, pt fairly active in daily life (HEP: L lateral reach betsy pose, squat chair taps, S/L hip ABD, marching bridges, modified ang stretch) Subjective Subjective: Pt presents to R thigh spasms and lumbar scoliosis. Pt reports major thigh spasms when turning L in bed, usually in R thigh but sometimes goes all the way down the leg. Pt denies any N/T in leg, no previous surgeries on R leg, no unexplained falls within the last year, no vascular changes in LE. Pt sleeping well with no interruptions. 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 Pt is frustrated about the thigh spasms, but back pain is intermittent but more irritable than the thigh. Pt had PT previously for her back, does her exercises daily before getting out of bed. Pt must stand for a few moments before walking after getting out of bed to help gain her balance, back pain usually starts after 4 steps. Denies any feeling of her legs giving out, sometimes has pain down back of legs when back pain is really bad. Thigh spasms usually last for a few minutes, rests it for a second but then starts moving ankle, knee and then whole leg slowly as muscle relaxes. Pt has an MRI on Sat, had an EMG (normal results)on LEs and then will be scheduling follow up with Dr. Hutchins. Uses corn bag and massage gun on her back which help with pain. Pt feels it is difficult to carry heavy things down her stairs, feels more unsteady and increases pain in her back when carrying. GOALS: pt likes to golf, bowl, works in [employer]/makes [employer] Pain Back: Pain Intensity (Out of 10): 0 Pain Intensity Range: 0 and 5 Right Lower Extremity: Pain Intensity (Out of 10): 0 Pain Intensity Range: 0 and 10 Objective Objective: ROM: lumbar - WNL some stretch with flex and ext, R LSB somewhat limited d/t scoliosis trunk lean to R hip - WNL, some stretch in piriformis with R hip ER MMT: R - knee ext 4-/5, knee flex 3+/5, hip flex 4-/5, hip ext 3+/5, hip ABD 3+/5, DF 4-/5, PF 4/5 L - knee ext 4/5, knee flex 4-/5, hip flex 4-/5, hip ext 3+/5, hip ABD 3+/5, DF 4-/5, PF 4/5 POSTURE: R lateral trunk lean, L mild trunk rotation, with head righting reaction GAIT: increased trunk sway with LE advancement, forward flexed trunk OBSERVATION: pt felt spams coming on when turning to L from supine to S/L, felt better with hip flex/quad stretch and laying prone SLS: R - 10+s with little to no sway, L - 8s with increased sway and ankle movement STS: no UE use, fatigue in quads with 10 reps, good eccentric control and squat form Balance/Special Test Scores Oswestry Low Back Score: 7 Goals Goal 1:: Pt will report <2 R quad spasms per week with overall min to no quad restriction/tightness Goal Time Frame: 2-4 Weeks Goal 2:: Pt will be able to carry a laundry basket up and down a full flight of steps with 0/10 back pain Goal Time Frame: 4-6 Weeks Goal 3:: Pt will demonstrate symmetrical LE strength Goal Time Frame: 4-6 Weeks Goal 4:: Pt will perform 5xSTS in <12s and no LOB Goal Time Frame: 4-6 Weeks Rehabilitation Potential Physical Therapy Diagnosis: Pt presents with LE weakness, R quad tightness, gait/posture deficits, and back pain. Pt would benefit from skilled PT services to address strength of postural and LE musculature and improve tissue extensibility of R quad, all of which are needed to improve indep function with ADLs. Rehabilitation Potential: Fair Anticipated Interventions Patient/Client Instruction: Educate patient on: Plan of Care For the Purpose of:: To decrease pain, To improve muscle performance and motor function, To improve ability to perform ADL's, To increase tolerance to activity/condition/position, To improve performance and independence with ADL's, To improve ability of physical actions for home/community/work/leisure, To improve gait and locomotor functions, To increase flexibility/ROM, To improve balance, To improve safety with gait, To assume or resume ADL's, To reduce risk of recurrence, To improve self management, To improve ability to perform tasks related to life management and To improve tolerance to ADL's Therapeutic Exercise to Include: Strength training, Endurance training, Balance training, Body mechanics, Postural training, Flexibilty training, Gait and locomotor training, Neuromotor development, Passive ROM, Active ROM, Dynamic Lumbar Stabilization, Kale Exercises and Scapular Strength/Stabilization For the Purpose of:: To decrease pain, To increase ROM, To improve nutrient delivery to tissue, To improve ability to perform ADL's, To increase tolerance to activity/condition/position, To improve performance and independence with ADL's, To improve gait and locomotor functions, To improve health of tissue, To increase flexibility/ROM, To improve balance, To improve safety with gait, To assume or resume ADL's, To improve safety, To improve health and function, To improve self management, To improve ability to perform tasks related to life management and To improve tolerance to ADL's Manual Therapy Techniques to Include: Mobilization, Passive ROM and Soft tissue mobilization For the Purpose of:: To decrease pain, To increase ROM, To decrease soft tissue restriction, To increase flexibility/ROM and To improve endurance TENS: Yes Cryotherapy (ice pack, ice massage): Yes Thermo therapy (hot pack): Yes Ultrasound (thermal/non thermal): Yes For the Purpose of:: To decrease pain, To improve health of tissue, To decrease soft tissue restriction, To increase flexibility/ROM and To improve endurance Text: Thank you for the opportunity to evaluate your patient. For Medicare and Medicare HMO plans, please review the plan of care and approve it. It will need to be FAXED BACK to us at [phone] for Medicare purposes. For Medicare only, by signing this I certify the plan of care. Please let me know if there are questions or concerns regarding this plan of care. Physician Signature: Date:
== END 2023-08-01 19:00 | disposition home or self-care (01) ==
LOC: PT 13:30
PROVIDERS: PCP Family Medicine; Referring Provider Orthopaedic Surgery Orthopaedic Surgery of the Spine; Visit Provider Orthopaedic Surgery Orthopaedic Surgery of the Spine
DX: M62.459 Contracture of muscle, unspecified thigh (principal); M41.9 Scoliosis, unspecified
CPT/HCPCS: 97110; 97161

== ENCOUNTER → 2023-10-08 | Outpatient (CLI) | payer MEDICARE, BC, SELFPAY ==
[2023-10-08 10:23] LABS: AST(SGOT) 21 U/L (15-37); Alanine Aminotransfer ALT/SGPT 27 U/L (13-56); Albumin, Serum 3.8 g/dL (3.2-5.0); Alkaline Phosphatase 98 U/L (45-117); Anion Gap 5 (5-15); BUN 15 mg/dL (7-18); BUN/Creat Ratio 20.1 RATIO (10-20); Calcium,Total 9.4 mg/dL (8.5-10.1); Chloride 99 mmol/L (98-107); Creatinine, Serum 0.75 mg/dL (0.55-1.02); EST Glomerular Filtration Rate 82 mL/min (>60); Est Glom Filt Rate - Afr Amer 99 mL/min (>60); Globulin 3.7 g/dL (2.2-4.2); Glucose 105 mg/dL (74-106); Potassium 3.6 mmol/L (3.5-5.1); Protein, Total 7.5 g/dL (6.4-8.2); Sodium Level 135 mmol/L (136-145)
[2023-10-08 10:57] LABS: Microalbumin,Random Urine < 5.0 mg/L (NO RANGE EST.)
== END | disposition home or self-care (01) ==
LOC: MFPLAB 08:38
PROVIDERS: PCP Family Medicine; Visit Provider Family Medicine
DX: I10 Essential (primary) hypertension (principal)
CPT/HCPCS: 36415; 80053; 82043; 82570

== ENCOUNTER → 2024-04-16 | Outpatient (CLI) | payer MEDICARE, BC, SELFPAY ==
[2024-04-16 12:24] LABS: Microalbumin,Random Urine 58.2 mg/L (NO RANGE EST.); Microalbumin:Creatinine Ratio 17.3 mg/g CRE (<30 mg/g CRE)
[2024-04-16 12:43] LABS: ALB/GLOB Ratio 1.2 RATIO (0.9-2.4); AST(SGOT) 23 U/L (15-37); Alanine Aminotransfer ALT/SGPT 26 U/L (13-56); Albumin, Serum 4.2 g/dL (3.2-5.0); Alkaline Phosphatase 94 U/L (45-117); Anion Gap 8 (5-15); BUN 20 mg/dL (7-18); BUN/Creat Ratio 23.1 RATIO (10-20); Chloride 98 mmol/L (98-107); Cholesterol 181 mg/dL (200); Creatinine, Serum 0.86 mg/dL (0.55-1.02); EST Glomerular Filtration Rate 69 mL/min (>60); Est Glom Filt Rate - Afr Amer 83 mL/min (>60); Globulin 3.6 g/dL (2.2-4.2); Glucose 93 mg/dL (74-106); High Density Lipoprotein 57 mg/dL; Potassium 3.9 mmol/L (3.5-5.1); Protein, Total 7.8 g/dL (6.4-8.2); Sodium Level 136 mmol/L (136-145); Triglycerides 79 mg/dL; Very Low Density Lipoprotein 16 mg/dL (5-40)
== END | disposition home or self-care (01) ==
LOC: MFPLAB 09:45
PROVIDERS: PCP Family Medicine; Referring Provider Family Medicine; Visit Provider Family Medicine
DX: Z13.220 Encounter for screening for lipoid disorders (principal); I10 Essential (primary) hypertension; E07.9 Disorder of thyroid, unspecified
CPT/HCPCS: 36415; 80053; 80061; 82043; 82570; 84443

== ENCOUNTER → 2024-05-07 | Outpatient (CLI) | payer MEDICARE, BC, SELFPAY ==
--- NOTE | 2024-05-07 15:03 | BD_ITS ---
PROCEDURE: DEXA BONE DENSITY STUDY REASON FOR EXAM: F, age 68 y/o . TECHNIQUE: DEXA scan of the lumbar spine and both hips. COMPARISON: 01/19/2020 FINDINGS: T-SCORES Lumbar spine: -1.7 (PM the 0.793); Previously: -1.3 Left hip: -0.7 (BMD 0.853); Previously: 0.2 Right hip: -2.1 (BMD 0.690); Previously: -0.8 FRAX* Results: 10 Year Probability of Fracture: Hip Fracture(1): 10% Major Osteoporotic Fracture(2): 1.6% *FRAX is a trademark of the [employer]'s [place] for Metabolic Bone Disease, World Health Organization (WHO) Collaborating [place]. 1-The 10-year probability of fracture may be lower than reported if the patient has received treatment. 2-Major Osteoporotic Fracture: Clinical Spine, Forearm, Hip or Shoulder. The T-scores are also available for review on the [facility] PACS or by accessing the [facility] electronic medical record. BD/Dexa Bone Density Study IMPRESSION: Decreasing T-score suggestive of osteopenia of the lumbar spine, left hip, and right hip Reading Location[facility]
--- NOTE | 2024-05-07 15:03 | BI_ITS ---
PROCEDURE: SCRN MAMM (CAD)W/SG BILAT REASON FOR EXAM: F, Age 68 y/o, presents for annual screening mammogram. Family history of breast cancer in a paternal aunt at age 72. TECHNIQUE: Bilateral screening digital breast tomosynthesis with 2D and 3D images. Computer aided detection. COMPARISON: 06/02/2021 FINDINGS: The breasts are almost entirely fatty. No suspicious masses, areas of developing architectural distortion, or suspicious calcifications. BI/SCRN MAMM (CAD)W/SG BILAT IMPRESSION: There is no mammographic evidence of malignancy in either breast. BI-RADS 1: NEGATIVE. RECOMMEND ANNUAL MAMMOGRAPHIC SCREENING. Follow-up code: Routine Follow-up The patient will be notified of the results by letter. Reading Location: [id number]
== END | disposition home or self-care (01) ==
LOC: OPBD 15:01
PROVIDERS: PCP Family Medicine; Referring Provider Family Medicine; Visit Provider Family Medicine
DX: Z12.31 Encounter for screening mammogram for malignant neoplasm of breast (principal); N95.9 Unspecified menopausal and perimenopausal disorder; M81.0 Age-related osteoporosis without current pathological fracture
CPT/HCPCS: 77063; 77067; 77080